=== PATIENT | male | born 1955 | race African-American/Black ===

== ENCOUNTER 2018-06-05 10:21 | Inpatient (IN) | payer OTHER, BC ==
[~2018-06-05 10:21] MED LIST: GELATIN, ABSORBABLE 100 EACH SPONGE TP ONE; THROMBIN (BOVINE) 5,000 UNIT VIAL TP ONE; VANCOMYCIN 1,000 MG VIAL (RESTRICTED TO ID ONLY) IVPB ONE; ceFAZolin SODIUM 1 GM VIAL IVPB ONE
[2018-06-05] MEDS ORDERED: SODIUM CHLORIDE 0.9% P/F 10 ML VIAL IJ ONE (13:54)
[2018-06-05] MEDS ORDERED: HEPARIN NA (PORCINE) 5,000 UNITS/ML 1ML VIAL ONE (14:07)
[2018-06-05] MEDS ORDERED: THROMBIN (BOVINE) 5,000 UNIT VIAL TP ONE ×2 (14:07→17:52)
[2018-06-05] MEDS ORDERED: MIDAZOLAM HCL 2 MG/2 ML SINGLE DOSE VIAL ONE (14:43)
[2018-06-05] MEDS ORDERED: SUCCINYLCHOLINE CHLORIDE 200 MG/10 ML VIAL ONE (14:44)
[2018-06-05] MEDS ORDERED: PROPOFOL 20 ML ONE ×17 (14:44→20:22)
[2018-06-05] MEDS ORDERED: ROCURONIUM BROMIDE 50 MG/5 ML VIAL ONE ×2 (14:44→16:34)
[2018-06-05] MEDS ORDERED: VANCOMYCIN 1,000 MG VIAL (RESTRICTED TO ID ONLY) IVPB ONE (15:45)
[2018-06-05] MEDS ORDERED: VANCOMYCIN 1,000 MG VIAL (RESTRICTED TO ID ONLY) ONE (15:45)
[2018-06-05] MEDS ORDERED: LIDOCAINE HCL/PF 2% SDV 5ML VIAL ONE (15:45)
[2018-06-05] MEDS ORDERED: ceFAZolin SODIUM 1 GM VIAL IVPB ONE ×2 (15:45→19:45)
[2018-06-05] MEDS ORDERED: ceFAZolin SODIUM 1 GM VIAL ONE ×2 (15:45→19:49)
[2018-06-05] MEDS ORDERED: GELATIN, ABSORBABLE 100 EACH SPONGE TP ONE (17:53)
[2018-06-05] MEDS ORDERED: PHENYLEPHRINE HCL 10 MG/1 ML SINGLE DOSE VIAL ONE (18:44)
[2018-06-05] MEDS ORDERED: TRANEXAMIC ACID 1000 MG/10 ML VIAL ONE (20:36)
[2018-06-05] MEDS ORDERED: DEXAMETHASONE SOD PHOSPHATE 4 MG/1 ML VIAL ONE (20:39)
[2018-06-05] MEDS ORDERED: ONDANSETRON 4 MG/2 ML VIAL IVPUSH PRN (21:12)
[2018-06-05] MEDS ORDERED: LORazepam 2 MG/ML SDV VIAL IVPUSH PRN (21:15)
--- NOTE | 2018-06-05 21:18 | PN ---
Progress Note (short form) - Note Progress Note: 63M s/p L3-S1 laminectomies; L3-4, L4-5 SPO's; L3-4, L4-5, L5-S1 PLIF; L2-S1 PISF POD #0. -Pain control: per anaesthesia team; recommend CEILING INSULATION BLOWER. -DVT PPx: - Mechanical only: TALHA's, SCD's. -Incentive spirometry. -PT/OT/Rehab, OOB. -WBAT B/L LE. -q4h B/L LE NV checks. -Post-op antibiotics x 2 doses. -NPO until flatus. -f/u AM labs. -f/u drain output. -d/c Mckeon catheter when ambulating. -Care per medical hospitalist team. -Discharge planning: f/u 7-10 days after discharge [facility]; call for appointment; . -Will follow. Zachary Willams MD (Orthopaedic Surgery).
--- NOTE | 2018-06-05 21:19 | OP ---
Operative Note - Note: Operative Date: 06/05/18 Pre-Operative Diagnosis: Lumbar spinal stenosis Operation: 1. L3-S1 laminectomies. 2. L3-4, L4-5 SPO's. 3. L3-4, L4-5, L5-S1 PLIF. 4. L2-S1 PISF. 5. Autograft. 6. Allograft Post-Operative Diagnosis: Same as Pre-op Surgeon: Zachary Willams Web Design Intern: Tin Willams Anesthesiologist/HAND CARVER: Venkata Wilson Anesthesia: General Specimens Removed: L3-S1 discs Estimated Blood Loss (mls): 600 Blood Volume Replaced (mls): 250 (Cell Saver) Fluid Volume Replaced (mls): 2,000 (Crystalloid)
[2018-06-05] MEDS ORDERED: ACETAMINOPHEN INJECTION 100 ML IVPB ONE (21:43)
[2018-06-05] MEDS ORDERED: HYDROmorphone *PCA* 10MG/50ML DISP.SYRIN PCA ONE ×2 (21:43→21:59)
[2018-06-05] MEDS: ACETAMINOPHEN 1000 MG/100 ML VIAL (NON FORMULARY) IVPB SCH (21:55)
[2018-06-05] MEDS: LACTATED RINGERS SOLUTION 1,000 ML IV SCH (22:10)
[2018-06-05] MEDS: HYDROmorphone *PCA* 10MG/50ML DISP.SYRIN PCA SCH ×2 (22:10→22:45)
[2018-06-05] MEDS: LABETALOL HCL 5 MG/1 ML (100MG/20 ML VIAL) IVPUSH PRN (22:35)
--- NOTE | 2018-06-05 23:28 | CONSULT ---
Consultation: REQUESTING PROVIDER: CONSULT REQUEST: We have been asked to medically evaluate this patient for ( intensive care ). HISTORY OF PRESENT ILLNESS: 63 y/o m with PMH of HTN, DM was admitted by spine surgeon for lumbar spine stenosis and . L3-S1 laminectomies. 2. L3-4, L4-5 SPO' s. 3. L3-4, L4-5, L5-S1 PLIF. 4. L2-S1 PISF. 5. Autograft. 6. Allograft was done on 06/05/18. patient recieved from PACU, sleeping as per pacu nurse patient recently got ativan because he was restless. patient also got labetalol push 10mg x2 BP 181/87, pr 98, spo2 96 on 3 L nc with nasal trumpet PHYSICAL EXAMINATION Vital Signs - 24 hr 06/05/18 06/05/18 06/05/18 11:08 11:13 21:30 Temperature 98.1 F 97.8 F Pulse Rate 81 90 Respiratory 18 18 Rate Blood Pressure 156/78 136/64 O2 Sat by Pulse 98 93 L Oximetry (%) 06/05/18 06/05/18 06/05/18 21:45 22:00 22:10 Temperature Pulse Rate 91 H 91 H 92 H Respiratory 17 18 17 Rate Blood Pressure 162/74 186/75 180/74 O2 Sat by Pulse 95 97 Oximetry (%) 06/05/18 06/05/18 06/05/18 22:15 22:30 22:45 Temperature Pulse Rate 92 H 90 91 H Respiratory 17 17 14 Rate Blood Pressure 180/74 202/95 169/69 O2 Sat by Pulse 93 L 94 L 94 L Oximetry (%) GENERAL: sleeping EYES: Pupils equal reactive to light b/l EARS, NOSE, THROAT: nasal trumpet with nasal canula present LUNGS: Breath sounds equal, clear to auscultation bilaterally. No wheezes, and no crackles. No accessory muscle use. HEART: s1s2 normal ABDOMEN: Soft, nontender, not distended, normoactive bowel sounds, no guarding, no rebound, no masses. UPPER EXTREMITIES: 2+ pulses, warm, well-perfused. No cyanosis. LOWER EXTREMITIES: well-perfused. No peripheral edema. NEUROLOGICAL: unobtainable SKIN: Warm, Laboratory Results - last 24 hr 06/05/18 06/05/18 06/05/18 10:34 11:00 11:00 POC Glucometer 117 Blood Type O POSITIVE O POSITIVE Antibody Screen Negative Active Medications Generic Name Dose Route Start Last Admin Trade Name Mitch PRN Reason Stop Dose Admin Acetaminophen 1,000 mg 06/05/18 21:15 06/05/18 21:55 Ofirmev Injection - IVPB 06/07/18 13:16 1,000 mg Q8H BAUTISTA Administration Cefazolin Sodium/Dextrose 2 gm 06/06/18 04:00 Ancef 2 Gm Premixed Ivpb - IVPB 06/06/18 12:01 Q8H BAUTISTA Fentanyl 50 mcg 06/05/18 21:44 Sublimaze Injection - IVPUSH [id number] PRN PAIN-PACU ORDER X 4 DOSES ONLY Hydromorphone HCl 0 mg 06/05/18 21:45 06/05/18 22:10 Dilaudid Dermatopathologist - DECKER OPERATOR 06/12/18 21:45 10 mg DECKER OPERATOR BAUTISTA Administration Protocol Lactated Ringer's 1,000 mls @ 125 mls/hr 06/05/18 21:15 Lactated Ringers Solution IV ASDIR [facility] Insulin Aspart 1 vial 06/06/18 07:00 Novolog Vial Sliding Scale - SQ BIDAC [facility] Protocol Labetalol HCl 10 mg 06/05/18 22:33 06/05/18 22:35 Normodyne Injection - IVPUSH 10 mg ONCE PRN Administration HYPERTENSION Lorazepam 1 mg 06/05/18 21:15 Ativan Injection - IVPUSH Q6H PRN MUSCLE SPASMS Losartan Potassium 25 mg 06/06/18 10:00 Cozaar - PO DAILY [facility] Ondansetron HCl 4 mg 06/05/18 21:12 Zofran Injection IVPUSH Q6H PRN NAUSEA AND/OR VOMITING ASSESSMENT/PLAN: Problem Lumbar spine stenosis. S/P . L3-S1 laminectomies. 2. L3-4, L4-5 SPO's. 3. L3-4, L4-5, L5-S1 PLIF. 4. L2-S1 PISF. 5. Autograft. 6. Allograft HTN DM Plan -Incentive spirometry. -PT/OT/Rehab, OOB. -q4h B/L LE NV checks. -Post-op antibiotics as per surgeon -NPO until flatus. -f/u AM labs. - d/c dennis catheter when ambulating. - got labetalol in pacu - on losartan 25mg daily. - monitor vitals - Novolog sliding scale - blood glucose monitoring. - IV fluid LR Dispo: We will continue to follow the patient. Thank you for this consultative opportunity. Visit type - Emergency Visit Emergency Visit: Yes ED Registration Date: 06/05/18 Care time: The patient presented to the Emergency Department on the above date and was hospitalized for further evaluation of their emergent condition. - New Patient This patient is new to me today: Yes Date on this admission: 06/13/18 - Critical Care Critical Care patient: Yes Total Critical Care Time (in minutes): 45 Critical Care Statement: The care of this patient involved high complexity decision making to prevent further life threatening deterioration of the patient 's condition and/or to evaluate & treat vital organ system(s) failure or risk of failure.
[2018-06-06] MEDS: ACETAMINOPHEN 1000 MG/100 ML VIAL (NON FORMULARY) IVPB SCH ×4 (04:45→22:56)
[2018-06-06] MEDS: ceFAZolin 2 GRAM PREMIX BAG IVPB SCH ×2 (04:58→12:37)
[2018-06-06] MEDS ORDERED: HEMOQUE TEST 1 EACH EACH ONE (06:09)
[2018-06-06 06:28] LABS: HEMATOCRIT 36.6 % (35.4-49); HEMOGLOBIN 12.5 GM/dL (11.7-16.9); MCH 30.6 pg (25.7-33.7); MCHC 34.1 g/dl (32.0-35.9); MEAN CELL VOLUME 89.7 fl (80-96); MEAN PLT VOLUME 9.9 fl (7.5-11.1); PLATELET COUNT 196 K/MM3 (134-434); RBC 4.09 M/mm3 (4.00-5.60); RDW 13.3 % (11.9-15.9); WHITE BLOOD COUNT 13.3 K/mm3 (4.0-10.0)
[2018-06-06 06:52] LABS: CHLORIDE 102 mmol/L (98-107); POTASSIUM 4.5 mmol/L (3.5-5.1); SODIUM 139 mmol/L (136-145)
[2018-06-06 06:59] LABS: ANION GAP 11 (8-16); BLOOD UREA NITROGEN 15 mg/dL (7-18); CALCIUM 8.4 mg/dL (8.5-10.1); CO2 26 mmol/L (21-32); CREATININE 1.3 mg/dL (0.7-1.3); GLUCOSE,RANDOM 293 mg/dL (74-106)
[2018-06-06] MEDS ORDERED: INSULIN SLIDING SCALE (NOVOLOG) 1 VIAL SQ SCH (07:00)
[2018-06-06] MEDS ORDERED: HYDROmorphone *PCA* 10MG/50ML DISP.SYRIN PCA SCH ×2 (08:18→11:20)
--- NOTE | 2018-06-06 08:24 | PN ---
Physical Exam: SUBJECTIVE: Patient seen and examined in the ICU. Pt appears to be resting comfortably. Upon awakening, pt seems confused and is not responding to questioning. OBJECTIVE: Vital Signs Period Temp Pulse Resp BP Sys/Cotto Pulse Ox Last 24 Hr 96 F-99.6 F 55-108 11-24 101-202/55-95 93-98 GENERAL: The patient is awake, in no acute distress. HEAD: Normal with no signs of trauma. EYES: sclera anicteric, conjunctiva clear. No ptosis. ENT: Ears normal, nares patent, oropharynx clear without exudates, moist mucous membranes. NECK: Trachea midline, full range of motion, supple. LUNGS: Breath sounds equal, clear to auscultation bilaterally, no wheezes, no crackles, no accessory muscle use. HEART: Tachycardic, regular rhythm, S1, S2 without murmur, rub or gallop. ABDOMEN: Soft, nontender, nondistended, hypoactive bowel sounds, no guarding, no rebound, no hepatosplenomegaly, no masses. EXTREMITIES: warm, well-perfused, no edema. NEUROLOGICAL: Cranial nerves II through XII grossly intact. gait not observed. Follows some commands but not others, full neuro exam unable to be obtained, gross motor strength of LE b/l in tact. SKIN: Warm, dry, normal turgor, no rashes or lesions noted Laboratory Results - last 24 hr 06/05/18 06/05/18 06/05/18 10:34 11:00 11:00 WBC RBC Hgb Hct MCV MCH MCHC RDW Plt Count MPV Sodium Potassium Chloride Carbon Dioxide Anion Gap BUN Creatinine Creat Clearance w eGFR POC Glucometer 117 Random Glucose Calcium Blood Type O POSITIVE O POSITIVE Antibody Screen Negative 06/06/18 06/06/18 05:30 05:30 WBC 13.3 H RBC 4.09 Hgb 12.5 Hct 36.6 MCV 89.7 MCH 30.6 MCHC 34.1 RDW 13.3 Plt Count 196 MPV 9.9 Sodium 139 Potassium 4.5 Chloride 102 Carbon Dioxide 26 Anion Gap 11 BUN 15 Creatinine 1.3 Creat Clearance w eGFR 55.40 POC Glucometer Random Glucose 293 H Calcium 8.4 L Blood Type Antibody Screen Active Medications Generic Name Dose Route Start Last Admin Trade Name Freq PRN Reason Stop Dose Admin Acetaminophen 1,000 mg 06/05/18 21:15 06/06/18 04:45 Ofirmev Injection - IVPB 06/07/18 13:16 1,000 mg Q8H BAUTISTA Administration Cefazolin Sodium/Dextrose 2 gm 06/06/18 04:00 06/06/18 04:58 Ancef 2 Gm Premixed Ivpb - IVPB 06/06/18 12:01 2 gm Q8H BAUTISTA Administration Fentanyl 50 mcg 06/05/18 21:44 Sublimaze Injection - IVPUSH [id number] PRN PAIN-PACU ORDER X 4 DOSES ONLY Hydromorphone HCl 0 mg 06/05/18 21:45 06/05/18 22:45 Dilaudid Plater Apprentice - PC MAINTENANCE TECHNICIAN 06/12/18 21:45 0.5 mg PC MAINTENANCE TECHNICIAN BAUTISTA Administration Protocol Lactated Ringer's 1,000 mls @ 125 mls/hr 06/05/18 21:15 06/05/18 22:10 Lactated Ringers Solution IV 125 mls/hr ASDIR BAUTISTA Administration Insulin Aspart 1 vial 06/06/18 07:00 Novolog Vial Sliding Scale - SQ BIDAC BAUTISTA Protocol Labetalol HCl 10 mg 06/05/18 22:33 06/05/18 22:35 Normodyne Injection - IVPUSH 10 mg ONCE PRN Administration HYPERTENSION Lorazepam 1 mg 06/05/18 21:15 06/05/18 23:15 Ativan Injection - IVPUSH 1 mg Q6H PRN Administration MUSCLE SPASMS Losartan Potassium 25 mg 06/06/18 10:00 Cozaar - PO DAILY BAUTISTA Ondansetron HCl 4 mg 06/05/18 21:12 Zofran Injection IVPUSH Q6H PRN NAUSEA AND/OR VOMITING ASSESSMENT/PLAN: 63 yo male admitted to the ICU s/p L3-S1 laminectomy, L3-L4/L4-L5 SPO, L3-S1 PLIF, L2-S1 PISF. Post-op day 1 Neuro -post-op day 1 -Neuro checks Q4 as per surgery recommendation Cardio -No known cardiac issues at this time Respiratory -No known respiratory problems -Incentive spirometry to decrease risk of post-op atelectasis/pneumonia GI -NPO until flatus -Will add bowel regimen as necessary -Zofran PRN for nausea/vomiting Post-op Management -Pain control: PC MAINTENANCE TECHNICIAN as per anesthesia Will monitor pain and switch to PO pain medication when able -OOB as tolerated -d/c dennis when Ambulating DVT Prophylaxis -TEDs/SCDs only as per surgery FEN -Fluids: LR @ 125 cc/hr -Electrolytes: No electrolyte abnormalities, will follow BMP -Nutrition: NPO until Flatus Disposition Monitor in the ICU for now Visit type - Emergency Visit Emergency Visit: No - New Patient This patient is new to me today: Yes Date on this admission: 06/06/18 - Critical Care Critical Care patient: Yes Total Critical Care Time (in minutes): 35 Critical Care Statement: The care of this patient involved high complexity decision making to prevent further life threatening deterioration of the patient 's condition and/or to evaluate & treat vital organ system(s) failure or risk of failure.
[2018-06-06] MEDS: LOSARTAN POTASSIUM 25 MG TABLET PO SCH (09:27)
--- NOTE | 2018-06-06 09:47 | OP ---
DATE OF OPERATION: 06/05/2018 SURGEON: Zachary Willams MD CLAY PRESS OPERATOR: Tin Willams MD PREOPERATIVE DIAGNOSIS: L2 to S1 spinal stenosis with associated segmental instability kyphosis and flat back syndrome. POSTOPERATIVE DIAGNOSIS: L2 to S1 spinal stenosis with associated segmental instability kyphosis and flat back syndrome. OPERATION PERFORMED: 1. Laminectomy L2 to S1. 2. Davies-Fernandez osteotomy at L3-L4 and L4-L5. 3. Pedicle screw instrumentation L2 to S1. 4. Posterior arthrodesis L2 to S1. 5. Use of biplane fluoroscopy and intraoperative neuromonitoring. 6. Bone aspirate concentrate. 7. Complex wound closure, 30 cm. ANESTHESIA: General. ANTIBIOTICS GIVEN: Kefzol 2 g, vancomycin 1 g. Kefzol 1 g given intraoperatively. Thorough lavage given throughout the operation. Relaxation with retractors every 15-20 minutes. OPERATION DETAILS: Patient was correctly identified, brought into the operating room, placed prone on the operating room table with gel rolls and all appropriate bony points padded. The lumbar spine was prepped, window-draped with routine Betadine scrub solution, wiped with alcohol, applied. Time-out was called. Imaging was available. Intraoperative evaluation. A midline incision was utilized from the tip of the spinous process to S1. Subperiosteal dissection performed down the spinous process over the laminae, over the facet joints to the intertransverse plane, both left and right hand sides exposing the entire area including the ala of the sacrum, both left and right hand sides. A lateral fluoroscopic x-ray revealed the correct levels for dissection as well as appropriate anatomical guidelines. The lamina from L2 to S1 resected using the Leksell rongeurs as well as Kerrison upcuts. Once this had been performed, longitudinal incisions were made in the pars interarticularis and the inferior facets to implode the bone inwards. The Davies-Sal osteotomies were then completed by resecting the pars interarticularis at L3-L4 and L4-L5. Once this had been performed, a full undercutting facetectomy was enabled by the resection of the inferior partially inferior facets. This freed the THEKA completely including the recesses. The above nerves were followed through the neural formina and found to be completely free. Once this had been performed, the discs at L3-L4, L4-L5, L5-S1 were identically managed as follows: Each disc exposed with gentle retraction of the THEKA. This gave access to the epidural veins utilized with bipolar Bovie. Each annulus was opened with the 11 blade. Each disc shaved with the appropriate jennifer. At L3-L4 and L4-L5, we shaved up to size 10 and then sized at L5-S1 to size 9. All disc material was removed, sent to the lab for histopathology. All discs exhibited complete emptiness into the interbody disc space with healthy end-plate bleeding bone accordingly. Once this had been performed, each disc space was packed with bone. This was the bone milled, harvested from the posterior and milled in a [place] mill. This was packed into position in each disc space, and each disc was filled with an appropriate 40-link spacer. Two were at L3-L4 and L4-L5 (they measured 11 mm), and at L5-S1, this was 10 mm. Once this had been completed, the screws from L2 to S1 were seated by first drilling, using anatomic guidelines with lateral fluoroscopic x-ray. Each pedicle was entered with a 4-5 drill bit, palpated with a ball-tipped feeler. Each screw was then seated, and the screws were tested with a neuromonitoring device, all thought to be completely safe within the parameters of neuromonitoring that is well above 10 mA, in fact all above 20. Rods were contoured appropriately, the spine encouraged into more lordosis by the Davies-Sal osteotomies, and the rods were tightened onto the screw caps with the appropriate torque device giving a solid fixation and excellent realignment of the spine appropriately. It was entirely lavaged again. The intertransverse plane was opened, and a mixture of autologous allograft was inserted, and strips of allograft inserted in bone marrow aspirate concentrate was inserted. The bone marrow aspirate concentrate was harvested from the left posterior ileum from a separate thoracodorsal incision. The wounds were thoroughly lavaged. Closure, muscle 1 Vicryl, fascia 1 Vicryl, subcutaneous 1 and 2-0 Vicryl, skin jennifer. No drains inserted as the wound was completely dry. Sterile dressing applied. The operation went well. AP lateral x-rays were well seated. No complications. BLOOD LOSS: 650, 250 given back with Cell Saver. MD SAUNDRA Payne/[id number]
--- NOTE | 2018-06-06 11:39 | PN ---
Progress Note (short form) - Note Progress Note: Anesthesia Post op/Pain Pt seen and examined S:sedated on ativan O; Vital Signs Temperature 98.8 F 06/06/18 10:00 Pulse Rate 107 H 06/06/18 10:00 Respiratory Rate 14 06/06/18 10:00 Blood Pressure 127/78 06/06/18 10:00 O2 Sat by Pulse Oximetry (%) 98 06/06/18 08:00 CBC, BMP 06/06/18 05:30 06/06/18 05:30 A/P:s/p L1-S1 Laminectomy with fusion Basal rate EMISSIONS INSPECTOR ordered by ICU resident without notification to fire prevention forester anesthesiologist Pt was not using EMISSIONS INSPECTOR on his own Will stop continuous EMISSIONS INSPECTOR will put demand only Needs encouragement to use EMISSIONS INSPECTOR post op spoke to ICU staffs Continue current care Tripp Brice MD
--- NOTE | 2018-06-06 11:59 | PN ---
Teaching Attending Note Name of Resident: Reymundo Brandon ATTENDING PHYSICIAN STATEMENT I saw and evaluated the patient. I reviewed the resident's note and discussed the case with the resident. I agree with the resident's findings and plan as documented. SUBJECTIVE: Patient seen and examined in the ICU. Drowsy but arousable. Able to tell me his Birthday, where he is, and what type of surgery he underwent. Moves all extremities without deficit. Noted he received Ativan around 9PM. Reports some discomfort at the surgical site. Denies CP or SOB. Intake & Output 06/03/18 06/04/18 06/05/18 06/06/18 23:59 23:59 23:59 23:59 Intake Total 2500 Output Total 1730 Balance 770 Weight 224 lb Last Vital Signs Temp Pulse Resp BP Pulse Ox 98.8 F 107 H 14 127/78 98 06/06/18 10:00 06/06/18 10:00 06/06/18 10:00 06/06/18 10:00 06/06/18 08:00 Active Medications Acetaminophen (Ofirmev Injection -) 1,000 mg IVPB Q8H BAUTISTA Stop: 06/07/18 13:16 Last Admin: 06/06/18 04:45 Dose: 1,000 mg Cefazolin Sodium/Dextrose (Ancef 2 Gm Premixed Ivpb -) 2 gm IVPB Q8H BAUTISTA Stop: 06/06/18 12:01 Last Admin: 06/06/18 04:58 Dose: 2 gm Fentanyl (Sublimaze Injection -) 50 mcg IVPUSH [id number] PRN PRN Reason: PAIN-PACU ORDER X 4 DOSES ONLY Hydromorphone HCl (Dilaudid Loan Underwriter -) 0 mg AUDIO VIDEO REPAIRER AUDIO VIDEO REPAIRER BAUTISTA; Protocol Stop: 06/12/18 21:45 Lactated Ringer's (Lactated Ringers Solution) 1,000 mls @ 125 mls/hr IV ASDIR BAUTISTA Last Admin: 06/05/18 22:10 Dose: 125 mls/hr Insulin Aspart (Novolog Vial Sliding Scale -) 1 vial SQ BIDAC BAUTISTA; Protocol Labetalol HCl (Normodyne Injection -) 10 mg IVPUSH ONCE PRN PRN Reason: HYPERTENSION Last Admin: 06/05/18 22:35 Dose: 10 mg Lorazepam (Ativan Injection -) 1 mg IVPUSH Q6H PRN PRN Reason: MUSCLE SPASMS Last Admin: 06/05/18 23:15 Dose: 1 mg Losartan Potassium (Cozaar -) 25 mg PO DAILY BAUTISTA Last Admin: 06/06/18 09:27 Dose: Not Given Ondansetron HCl (Zofran Injection) 4 mg IVPUSH Q6H PRN PRN Reason: NAUSEA AND/OR VOMITING GENERAL: Drowsy but arousable, NAD EYES: Pupils equal reactive to light EARS, NOSE, THROAT: nasal trumpet with nasal canula present LUNGS: Clear to auscultation bilaterally. No wheezes, and no crackles. No accessory muscle use. HEART: S1S2 normal ABDOMEN: Soft, nontender, not distended, normoactive bowel sounds, no guarding, no rebound, no masses. UPPER EXTREMITIES: 2+ pulses, warm, well-perfused. No cyanosis. LOWER EXTREMITIES: well-perfused. No peripheral edema. NEUROLOGICAL: Non-focal exam SKIN: Warm Laboratory Results - last 24 hr 06/05/18 06/05/18 06/05/18 10:34 11:00 22:10 WBC RBC Hgb Hct MCV MCH MCHC RDW Plt Count MPV Sodium Potassium Chloride Carbon Dioxide Anion Gap BUN Creatinine Creat Clearance w eGFR POC Glucometer 169 Random Glucose Calcium Blood Type O POSITIVE O POSITIVE Antibody Screen Negative 06/06/18 06/06/18 06/06/18 05:30 05:30 06:11 WBC 13.3 H RBC 4.09 Hgb 12.5 Hct 36.6 MCV 89.7 MCH 30.6 MCHC 34.1 RDW 13.3 Plt Count 196 MPV 9.9 Sodium 139 Potassium 4.5 Chloride 102 Carbon Dioxide 26 Anion Gap 11 BUN 15 Creatinine 1.3 Creat Clearance w eGFR 55.40 POC Glucometer [phone] Random Glucose 293 H Calcium 8.4 L Blood Type Antibody Screen ASSESSMENT/PLAN: POD #1: L3-S1 laminectomies; L3-4, L4-5 SPO's; L3-4, L4-5, L5-S1 PLIF; L2-S1 PISF; Autograft; Allograft. Spinal Stenosis HTN DM Plan Incentive spirometry Pain control PT/OT/Rehab Follow Neuro exam Post-op ABX per surgery NPO until flatus D/C dennis catheter when ambulating BP control Glycemic control with a sliding scale Dr Lee Critical care time spent in reviewing chart, evaluating patient and formulating plan - 36 minutes.
[2018-06-06] MEDS: HYDROmorphone *PCA* 10MG/50ML DISP.SYRIN PCA SCH ×2 (13:42→21:12)
[2018-06-06] MEDS: LACTATED RINGERS SOLUTION 1,000 ML IV SCH ×2 (17:00→22:48)
[2018-06-06] MEDS ORDERED: INSULIN (NOVOLOG) ASPART 100 UNITS/ML 10ML VIAL ONE (17:31)
[2018-06-06] MEDS: INSULIN SLIDING SCALE (NOVOLOG) 1 VIAL SQ SCH (17:40)
[2018-06-06] MEDS ORDERED: HYDROmorphone *PCA* 10MG/50ML DISP.SYRIN PCA ONE (21:02)
[2018-06-07] MEDS: LABETALOL HCL 5 MG/1 ML (100MG/20 ML VIAL) IVPUSH PRN (00:24)
[2018-06-07] MEDS: LACTATED RINGERS SOLUTION 1,000 ML IV SCH ×2 (00:29→08:27)
[2018-06-07] MEDS: ACETAMINOPHEN 1000 MG/100 ML VIAL (NON FORMULARY) IVPB SCH (05:50)
[2018-06-07 05:57] LABS: BASO % 0.1 % (0-2.0); EOS % 0.1 % (0-4.5); HEMATOCRIT 30.8 % (35.4-49); HEMOGLOBIN 10.7 GM/dL (11.7-16.9); LYMPH % 7.8 % (8-40); MCH 31.4 pg (25.7-33.7); MCHC 34.8 g/dl (32.0-35.9); MEAN CELL VOLUME 90.3 fl (80-96); MEAN PLT VOLUME 9.9 fl (7.5-11.1); PLATELET COUNT 155 K/MM3 (134-434); RBC 3.41 M/mm3 (4.00-5.60); RDW 13.6 % (11.9-15.9); WHITE BLOOD COUNT 11.8 K/mm3 (4.0-10.0)
[2018-06-07] MEDS: INSULIN SLIDING SCALE (NOVOLOG) 1 VIAL SQ SCH ×2 (06:07→17:43)
[2018-06-07 06:42] LABS: ALBUMIN 3.3 g/dl (3.4-5.0); ANION GAP 6 (8-16); BILIRUBIN,TOTAL 1.1 mg/dL (0.2-1.0); BLOOD UREA NITROGEN 18 mg/dL (7-18); CALCIUM 8.3 mg/dL (8.5-10.1); CHLORIDE 103 mmol/L (98-107); CO2 31 mmol/L (21-32); CREATININE 1.1 mg/dL (0.7-1.3); GLUCOSE,RANDOM 252 mg/dL (74-106); MAGNESIUM 2.1 mg/dL (1.8-2.4); PHOSPHOROUS 2.4 mg/dL (2.5-4.9); POTASSIUM 4.3 mmol/L (3.5-5.1); SGOT/AST 36 U/L (15-37); SGPT/ALT 26 U/L (12-78); SODIUM 140 mmol/L (136-145); TOT PROT 6.4 g/dl (6.4-8.2)
[2018-06-07 06:43] LABS: ALK PHOS 72 U/L (45-117)
[2018-06-07] MEDS: LOSARTAN POTASSIUM 25 MG TABLET PO SCH (09:01)
[2018-06-07] MEDS ORDERED: DOCUSATE SODIUM 100 MG CAPSULE (FP) PO PRN ×2 (09:02→16:41)
[2018-06-07] MEDS ORDERED: ACETAMINOPHEN 325 MG TABLET (FP) PO PRN (09:02)
--- NOTE | 2018-06-07 11:07 | PN ---
Progress Note, Physician Chief Complaint: day #2 s/p PLIF - Current Medication List Current Medications: Active Medications Acetaminophen (Tylenol -) 650 mg PO Q4H PRN PRN Reason: PAIN LEVEL 1-5 Docusate Sodium (Colace -) 100 mg PO BID PRN PRN Reason: CONSTIPATION Last Admin: 06/07/18 10:37 Dose: 100 mg Fentanyl (Sublimaze Injection -) 50 mcg IVPUSH [id number] PRN PRN Reason: PAIN-PACU ORDER X 4 DOSES ONLY Hydromorphone HCl (Dilaudid Tungsten Refiner -) 0 mg CREATIVE COORDINATOR CREATIVE COORDINATOR [facility]; Protocol Stop: 06/12/18 21:45 Last Admin: 06/06/18 21:12 Dose: 10 mg Lactated Ringer's (Lactated Ringers Solution) 1,000 mls @ 125 mls/hr IV ASDIR BAUTISTA Last Admin: 06/07/18 08:27 Dose: 125 mls/hr Insulin Aspart (Novolog Vial Sliding Scale -) 1 vial SQ BIDAC [facility]; Protocol Last Admin: 06/07/18 06:07 Dose: 6 units Lorazepam (Ativan Injection -) 1 mg IVPUSH Q6H PRN PRN Reason: MUSCLE SPASMS Last Admin: 06/05/18 23:15 Dose: 1 mg Losartan Potassium (Cozaar -) 25 mg PO DAILY [facility] Last Admin: 06/07/18 09:01 Dose: 25 mg Ondansetron HCl (Zofran Injection) 4 mg IVPUSH Q6H PRN PRN Reason: NAUSEA AND/OR VOMITING - Objective Vital Signs: Vital Signs Temperature 97.6 F 06/07/18 06:00 Pulse Rate 100 H 06/07/18 08:00 Respiratory Rate 18 06/07/18 08:00 Blood Pressure 175/77 06/07/18 08:00 O2 Sat by Pulse Oximetry (%) 98 06/06/18 22:00 Labs: CBC, BMP 06/07/18 05:30 06/07/18 05:30 Assessment/Plan Pain well controlled on CREATIVE COORDINATOR; will continue CREATIVE COORDINATOR for now
--- NOTE | 2018-06-07 11:10 | PN ---
Physical Exam: SUBJECTIVE: Patient seen and examined in the ICU. He is much more awake and responsive today than yesterday. He states that his pain is improved and that he is able to move and get out of bed. He states that he is hungry and thinks he could tolerate food. OBJECTIVE: Vital Signs Period Temp Pulse Resp BP Sys/Cotto Pulse Ox Last 24 Hr 97.6 F-98.2 F 92-111 12-18 136-179/70-96 98 GENERAL: The patient is awake, in no acute distress. HEAD: Normal with no signs of trauma. EYES: sclera anicteric, conjunctiva clear. No ptosis. ENT: Ears normal, nares patent, oropharynx clear without exudates, moist mucous membranes. NECK: Trachea midline, full range of motion, supple. LUNGS: Breath sounds equal, clear to auscultation bilaterally, no wheezes, no crackles, no accessory muscle use. HEART: Tachycardic, regular rhythm, S1, S2 without murmur, rub or gallop. ABDOMEN: Soft, nontender, nondistended, normoactive bowel sounds, no guarding, no rebound, no hepatosplenomegaly, no masses. EXTREMITIES: warm, well-perfused, no edema. NEUROLOGICAL: Cranial nerves II through XII grossly intact. gait not observed. 5/5 Strength of LE, sensation in tact SKIN: Warm, dry, normal turgor, no rashes or lesions noted Laboratory Results - last 24 hr 06/06/18 06/07/18 06/07/18 06:11 05:30 05:30 WBC 11.8 H RBC 3.41 L Hgb 10.7 L Hct 30.8 L D MCV 90.3 MCH 31.4 MCHC 34.8 RDW 13.6 Plt Count 155 D MPV 9.9 Absolute Neuts (auto) 9.9 Neutrophils % 84.0 H Lymphocytes % 7.8 L Monocytes % 8.0 Eosinophils % 0.1 Basophils % 0.1 Nucleated RBC % 0 Sodium 140 Potassium 4.3 Chloride 103 Carbon Dioxide 31 Anion Gap 6 L BUN 18 Creatinine 1.1 Creat Clearance w eGFR > 60 POC Glucometer [phone] Random Glucose 252 H Calcium 8.3 L Phosphorus 2.4 L Magnesium 2.1 Total Bilirubin 1.1 H AST 36 ALT 26 Alkaline Phosphatase 72 Total Protein 6.4 Albumin 3.3 L Active Medications Generic Name Dose Route Start Last Admin Trade Name Freq PRN Reason Stop Dose Admin Acetaminophen 650 mg 06/07/18 09:02 Tylenol - PO Q4H PRN PAIN LEVEL 1-5 Docusate Sodium 100 mg 06/07/18 09:02 06/07/18 10:37 Colace - PO 100 mg BID PRN Administration CONSTIPATION Fentanyl 50 mcg 06/05/18 21:44 Sublimaze Injection - IVPUSH [id number] PRN PAIN-PACU ORDER X 4 DOSES ONLY Hydromorphone HCl 0 mg 06/06/18 11:42 06/06/18 21:12 Dilaudid Staff Radiologist - STEM SETTER 06/12/18 21:45 10 mg STEM SETTER BAUTISTA Administration Protocol Lactated Ringer's 1,000 mls @ 125 mls/hr 06/05/18 21:15 06/07/18 08:27 Lactated Ringers Solution IV 125 mls/hr ASDIR BAUTISTA Administration Insulin Aspart 1 vial 06/06/18 11:16 06/07/18 06:07 Novolog Vial Sliding Scale - SQ 6 units BIDAC BAUTISTA Administration Protocol Lorazepam 1 mg 06/05/18 21:15 06/05/18 23:15 Ativan Injection - IVPUSH 1 mg Q6H PRN Administration MUSCLE SPASMS Losartan Potassium 25 mg 06/06/18 10:00 06/07/18 09:01 Cozaar - PO 25 mg DAILY BAUTISTA Administration Ondansetron HCl 4 mg 06/05/18 21:12 Zofran Injection IVPUSH Q6H PRN NAUSEA AND/OR VOMITING ASSESSMENT/PLAN: 63 yo male admitted to the ICU s/p L3-S1 laminectomy, L3-L4/L4-L5 SPO, L3-S1 PLIF, L2-S1 PISF. Post-op day 2 Neuro -post-op day 2 -Neuro checks Q4 as per surgery recommendation Cardio -HTN Cozar 25 mg PO Daily Respiratory -No known respiratory problems -Incentive spirometry to decrease risk of post-op atelectasis/pneumonia GI -Clear liquids, can advance as tolerated -Colace 100 mg PO BID PRN constipation -Zofran PRN for nausea/vomiting Endocrine -DM Insulin Sliding scale, will adjust as necessary for glycemic control 140-180 Post-op Management -Pain control: STEM SETTER as per anesthesia Will monitor pain and switch to PO pain medication when able -OOB as tolerated -d/c dennis DVT Prophylaxis -TEDs/SCDs only as per surgery FEN -Fluids: LR @ 125 cc/hr, can d/c if tolerating diet -Electrolytes: No electrolyte abnormalities, will follow BMP -Nutrition: Clear liquid diet, will advance as tolerated, bowel regimen Disposition Transfer to Med/Surg Problem List - Problems (1) HTN (hypertension) Code(s): I10 - ESSENTIAL (PRIMARY) HYPERTENSION (2) Diabetes mellitus Code(s): E11.9 - TYPE 2 DIABETES MELLITUS WITHOUT COMPLICATIONS (3) Chronic low back pain Code(s): M54.5 - LOW BACK PAIN; G89.29 - OTHER CHRONIC PAIN Visit type - Emergency Visit Emergency Visit: No - New Patient This patient is new to me today: No - Critical Care Critical Care patient: Yes Total Critical Care Time (in minutes): 35 Critical Care Statement: The care of this patient involved high complexity decision making to prevent further life threatening deterioration of the patient 's condition and/or to evaluate & treat vital organ system(s) failure or risk of failure.
--- NOTE | 2018-06-07 11:45 | PN ---
Teaching Attending Note Name of Resident: Reymundo Brandon ATTENDING PHYSICIAN STATEMENT I saw and evaluated the patient. I reviewed the resident's note and discussed the case with the resident. I agree with the resident's findings and plan as documented. SUBJECTIVE: Pt seen and examined in the ICU. Pain relatively controlled. No nausea or vomiting. No fevers or chills. OBJECTIVE: Vital Signs Period Temp Pulse Resp BP Sys/Cotto Pulse Ox Last 24 Hr 97.6 F-98.2 F 92-111 12-18 136-179/70-96 98 Intake & Output 06/04/18 06/05/18 06/06/18 06/07/18 23:59 23:59 23:59 23:59 Intake Total 2500 1500 1880 Output Total 1730 1050 800 Balance 566 871 2115 Weight 101.605 kg 101.605 kg 101.208 kg Gen: NAD at rest Heart: RRR Lung: decreased breath sounds at the bases Abd: soft, nontender Ext: no edema CBC, BMP 06/07/18 05:30 06/07/18 05:30 Active Medications Acetaminophen (Tylenol -) 650 mg PO Q4H PRN PRN Reason: PAIN LEVEL 1-5 Docusate Sodium (Colace -) 100 mg PO BID PRN PRN Reason: CONSTIPATION Last Admin: 06/07/18 10:37 Dose: 100 mg Fentanyl (Sublimaze Injection -) 50 mcg IVPUSH [id number] PRN PRN Reason: PAIN-PACU ORDER X 4 DOSES ONLY Hydromorphone HCl (Dilaudid Investigation Division Captain -) 0 mg OIL PIPELINE DISPATCHER OIL PIPELINE DISPATCHER [facility]; Protocol Stop: 06/12/18 21:45 Last Admin: 06/06/18 21:12 Dose: 10 mg Lactated Ringer's (Lactated Ringers Solution) 1,000 mls @ 125 mls/hr IV ASDIR BAUTISTA Last Admin: 06/07/18 08:27 Dose: 125 mls/hr Insulin Aspart (Novolog Vial Sliding Scale -) 1 vial SQ BIDAC [facility]; Protocol Last Admin: 06/07/18 06:07 Dose: 6 units Lorazepam (Ativan Injection -) 1 mg IVPUSH Q6H PRN PRN Reason: MUSCLE SPASMS Last Admin: 06/05/18 23:15 Dose: 1 mg Losartan Potassium (Cozaar -) 25 mg PO DAILY BAUTISTA Last Admin: 06/07/18 09:01 Dose: 25 mg Ondansetron HCl (Zofran Injection) 4 mg IVPUSH Q6H PRN PRN Reason: NAUSEA AND/OR VOMITING ASSESSMENT AND PLAN: Lumbar Spinal Stenosis s/p L3-S1 Laminectomies/L3-L4, L4-5, L5-S1 PLIF/L2-S1 PISF DM - pain control - incentive spirometry - d/c dennis - bowel regimen - rehab/PT - DVT prophylaxis - can monitor on floor
[2018-06-07] MEDS ORDERED: PNEUMOC 13-VAL CONJ-DIP CRM/PF 0.5 ML DISP.SYRIN IM ONE (16:30)
[2018-06-07] MEDS ORDERED: LACTATED RINGERS SOLUTION 1,000 ML IV SCH ×2 (16:41→16:53)
[2018-06-07] MEDS ORDERED: HYDROmorphone *PCA* 10MG/50ML DISP.SYRIN PCA SCH (16:41)
[2018-06-07] MEDS ORDERED: ONDANSETRON 4 MG/2 ML VIAL IVPUSH PRN (16:41)
[2018-06-07] MEDS ORDERED: KETOROLAC TROMETHAMINE 30 MG/1 ML VIAL IVPUSH PRN (23:02)
[2018-06-07] MEDS: LORazepam 2 MG/ML SDV VIAL IVPUSH PRN (23:47)
[2018-06-08] MEDS: INSULIN SLIDING SCALE (NOVOLOG) 1 VIAL SQ SCH ×4 (06:18→21:43)
[2018-06-08 06:34] LABS: BASO % 0.3 % (0-2.0); EOS % 0.6 % (0-4.5); HEMATOCRIT 29.2 % (35.4-49); HEMOGLOBIN 10.5 GM/dL (11.7-16.9); LYMPH % 12.5 % (8-40); MCH 31.8 pg (25.7-33.7); MCHC 35.7 g/dl (32.0-35.9); MEAN CELL VOLUME 89.1 fl (80-96); MEAN PLT VOLUME 9.7 fl (7.5-11.1); MONO % 7.3 % (3.8-10.2); NEUT % 79.3 % (42.8-82.8); PLATELET COUNT 135 K/MM3 (134-434); RBC 3.28 M/mm3 (4.00-5.60); RDW 12.9 % (11.9-15.9); WHITE BLOOD COUNT 7.9 K/mm3 (4.0-10.0)
[2018-06-08 06:54] LABS: ALK PHOS 72 U/L (45-117); ANION GAP 7 (8-16); BILIRUBIN,TOTAL 1.3 mg/dL (0.2-1.0); BLOOD UREA NITROGEN 11 mg/dL (7-18); CALCIUM 8.5 mg/dL (8.5-10.1); CHLORIDE 100 mmol/L (98-107); CO2 32 mmol/L (21-32); CREATININE 1.1 mg/dL (0.7-1.3); GLUCOSE,RANDOM 256 mg/dL (74-106); POTASSIUM 3.7 mmol/L (3.5-5.1); SGOT/AST 39 U/L (15-37); SGPT/ALT 25 U/L (12-78); SODIUM 139 mmol/L (136-145); TOT PROT 6.1 g/dl (6.4-8.2)
[2018-06-08] MEDS ORDERED: NAPH,MB-DB/K PH,MBDB POWDER PACKET PO ONE (08:45)
[2018-06-08] MEDS: LOSARTAN POTASSIUM 25 MG TABLET PO SCH (09:09)
[2018-06-08] MEDS ORDERED: NAPH,MB-DB/K PH,MBDB POWDER PACKET PO SCH (10:00)
--- NOTE | 2018-06-08 12:59 | PN ---
Teaching Attending Note Name of Resident: Reymundo Brandon ATTENDING PHYSICIAN STATEMENT I saw and evaluated the patient. I reviewed the resident's note and discussed the case with the resident. I agree with the resident's findings and plan as documented. SUBJECTIVE: Patient seen and examined in the ICU. Awake and alert. Pain mostly on movement. No CP or SOB. No BM for several days. Intake & Output 06/05/18 06/06/18 06/07/18 06/08/18 23:59 23:59 23:59 23:59 Intake Total 2500 1500 2860 Output Total 1730 1050 2100 300 Balance 770 450 760 -300 Weight 224 lb 224 lb 223 lb 2 oz 226 lb 6 oz Last Vital Signs Temp Pulse Resp BP Pulse Ox 98.2 F 100 H 12 173/73 97 06/08/18 12:00 06/08/18 12:00 06/08/18 12:00 06/08/18 12:00 06/08/18 08:59 Active Medications Acetaminophen (Tylenol -) 650 mg PO Q4H PRN PRN Reason: PAIN LEVEL 1 - 3 Docusate Sodium (Colace -) 100 mg PO Q12H PRN PRN Reason: CONSTIPATION Hydromorphone HCl (Dilaudid Plasterer Spot -) 0 mg PRINCIPAL MECHANICAL ENGINEER PRINCIPAL MECHANICAL ENGINEER [facility]; Protocol Stop: 06/12/18 21:45 Lactated Ringer's (Lactated Ringers Solution) 1,000 mls @ 21 mls/hr IV ASDIR [facility] Last Admin: 06/07/18 17:31 Dose: 21 mls/hr Insulin Aspart (Novolog Vial Sliding Scale -) 1 vial SQ BIDAC [facility]; Protocol Last Admin: 06/08/18 06:18 Dose: 6 units Ketorolac Tromethamine (Toradol Injection -) 30 mg IVPUSH Q6H PRN PRN Reason: PAIN LEVEL 4 - 6 Stop: 06/12/18 23:01 Lorazepam (Ativan Injection -) 1 mg IVPUSH Q6H PRN PRN Reason: MUSCLE SPASMS Last Admin: 06/07/18 23:47 Dose: 1 mg Losartan Potassium (Cozaar -) 25 mg PO DAILY BAUTISTA Last Admin: 06/08/18 09:09 Dose: 25 mg Ondansetron HCl (Zofran Injection) 4 mg IVPUSH Q6H PRN PRN Reason: NAUSEA AND/OR VOMITING Potassium Phos/Sodium Phos (Phos-Nak Packet -) 1 packet PO BID BAUTISTA Last Admin: 06/08/18 09:09 Dose: 1 packet GENERAL: Awake and alert, NAD EYES: Pupils equal reactive to light EARS, NOSE, THROAT: nasal trumpet with nasal canula present LUNGS: Clear to auscultation bilaterally. No wheezes, and no crackles. No accessory muscle use. HEART: S1S2 normal ABDOMEN: Soft, nontender, not distended, normoactive bowel sounds, no guarding, no rebound, no masses. UPPER EXTREMITIES: 2+ pulses, warm, well-perfused. No cyanosis. LOWER EXTREMITIES: well-perfused. No peripheral edema. NEUROLOGICAL: Non-focal exam SKIN: Warm Laboratory Results - last 24 hr 06/07/18 06/08/18 06/08/18 17:28 05:30 05:30 WBC 7.9 RBC 3.28 L Hgb 10.5 L Hct 29.2 L MCV 89.1 MCH 31.8 MCHC 35.7 RDW 12.9 Plt Count 135 MPV 9.7 Absolute Neuts (auto) 6.2 Neutrophils % 79.3 Lymphocytes % 12.5 D Monocytes % 7.3 Eosinophils % 0.6 D Basophils % 0.3 Nucleated RBC % 0 Sodium 139 Potassium 3.7 Chloride 100 Carbon Dioxide 32 Anion Gap 7 L BUN 11 Creatinine 1.1 Creat Clearance w eGFR > 60 POC Glucometer [phone] Random Glucose 256 H Calcium 8.5 Phosphorus 1.0 L* D Magnesium 2.0 Total Bilirubin 1.3 H AST 39 H ALT 25 Alkaline Phosphatase 72 Total Protein 6.1 L Albumin 3.0 L 06/08/18 06:01 WBC RBC Hgb Hct MCV MCH MCHC RDW Plt Count MPV Absolute Neuts (auto) Neutrophils % Lymphocytes % Monocytes % Eosinophils % Basophils % Nucleated RBC % Sodium Potassium Chloride Carbon Dioxide Anion Gap BUN Creatinine Creat Clearance w eGFR POC Glucometer [phone] Random Glucose Calcium Phosphorus Magnesium Total Bilirubin AST ALT Alkaline Phosphatase Total Protein Albumin ASSESSMENT/PLAN: POD #3: L3-S1 laminectomies; L3-4, L4-5 SPO's; L3-4, L4-5, L5-S1 PLIF; L2-S1 PISF; Autograft; Allograft. Spinal Stenosis HTN DM Plan Incentive spirometry Pain control PT/OT/Rehab Bowel regimen BP control Glycemic control with a sliding scale Dr Lee Critical care time spent in reviewing chart, evaluating patient and formulating plan - 36 minutes.
--- NOTE | 2018-06-08 13:47 | PN ---
Physical Exam: SUBJECTIVE: Patient seen and examined in the ICU. States his pain is improving each day. Able to get up and out of bed, ambulating well. Tolerating diet well with no nausea or vomiting. OBJECTIVE: Vital Signs Period Temp Pulse Resp BP Sys/Cotto Pulse Ox Last 24 Hr 98.0 F-98.6 F 97-111 11-18 133-182/51-79 97-97 GENERAL: The patient is awake, in no acute distress. HEAD: Normal with no signs of trauma. EYES: sclera anicteric, conjunctiva clear. No ptosis. ENT: Ears normal, nares patent, oropharynx clear without exudates, moist mucous membranes. NECK: Trachea midline, full range of motion, supple. LUNGS: Breath sounds equal, clear to auscultation bilaterally, no wheezes, no crackles, no accessory muscle use. HEART: Tachycardic, regular rhythm, S1, S2 without murmur, rub or gallop. ABDOMEN: Soft, nontender, nondistended, normoactive bowel sounds, no guarding, no rebound, no hepatosplenomegaly, no masses. EXTREMITIES: warm, well-perfused, no edema. NEUROLOGICAL: Cranial nerves II through XII grossly intact. gait not observed. 5/5 Strength of LE, sensation in tact SKIN: Warm, dry, normal turgor, no rashes or lesions noted Laboratory Results - last 24 hr 06/07/18 06/08/18 06/08/18 17:28 05:30 05:30 WBC 7.9 RBC 3.28 L Hgb 10.5 L Hct 29.2 L MCV 89.1 MCH 31.8 MCHC 35.7 RDW 12.9 Plt Count 135 MPV 9.7 Absolute Neuts (auto) 6.2 Neutrophils % 79.3 Lymphocytes % 12.5 D Monocytes % 7.3 Eosinophils % 0.6 D Basophils % 0.3 Nucleated RBC % 0 Sodium 139 Potassium 3.7 Chloride 100 Carbon Dioxide 32 Anion Gap 7 L BUN 11 Creatinine 1.1 Creat Clearance w eGFR > 60 POC Glucometer [phone] Random Glucose 256 H Calcium 8.5 Phosphorus 1.0 L* D Magnesium 2.0 Total Bilirubin 1.3 H AST 39 H ALT 25 Alkaline Phosphatase 72 Total Protein 6.1 L Albumin 3.0 L 06/08/18 06:01 WBC RBC Hgb Hct MCV MCH MCHC RDW Plt Count MPV Absolute Neuts (auto) Neutrophils % Lymphocytes % Monocytes % Eosinophils % Basophils % Nucleated RBC % Sodium Potassium Chloride Carbon Dioxide Anion Gap BUN Creatinine Creat Clearance w eGFR POC Glucometer [phone] Random Glucose Calcium Phosphorus Magnesium Total Bilirubin AST ALT Alkaline Phosphatase Total Protein Albumin Active Medications Generic Name Dose Route Start Last Admin Trade Name Freq PRN Reason Stop Dose Admin Acetaminophen 650 mg 06/07/18 16:41 Tylenol - PO Q4H PRN PAIN LEVEL 1 - 3 Docusate Sodium 100 mg 06/07/18 16:41 Colace - PO Q12H PRN CONSTIPATION Hydromorphone HCl 0 mg 06/07/18 16:41 Dilaudid Assignment Officer - OPERATIONS/DISPATCH 06/12/18 21:45 OPERATIONS/DISPATCH BAUTISTA Protocol Lactated Ringer's 1,000 mls @ 21 mls/hr 06/07/18 16:53 06/07/18 17:31 Lactated Ringers Solution IV 21 mls/hr ASDIR BAUTISTA Administration Insulin Aspart 1 vial 06/08/18 07:00 06/08/18 06:18 Novolog Vial Sliding Scale - SQ 6 units BIDAC BAUTISTA Administration Protocol Ketorolac Tromethamine 30 mg 06/07/18 23:02 Toradol Injection - IVPUSH 06/12/18 23:01 Q6H PRN PAIN LEVEL 4 - 6 Lorazepam 1 mg 06/07/18 16:41 06/07/18 23:47 Ativan Injection - IVPUSH 1 mg Q6H PRN Administration MUSCLE SPASMS Losartan Potassium 25 mg 06/08/18 10:00 06/08/18 09:09 Cozaar - PO 25 mg DAILY BAUTISTA Administration Ondansetron HCl 4 mg 06/07/18 16:41 Zofran Injection IVPUSH Q6H PRN NAUSEA AND/OR VOMITING Potassium Phos/Sodium Phos 1 packet 06/08/18 10:00 06/08/18 09:09 Phos-Nak Packet - PO 1 packet BID BAUTISTA Administration ASSESSMENT/PLAN: 63 yo male admitted to the ICU s/p L3-S1 laminectomy, L3-L4/L4-L5 SPO, L3-S1 PLIF, L2-S1 PISF. Post-op day 3 Neuro -post-op day 3 -No acute neuro dysfunction Cardio -HTN Cozar 25 mg PO Daily Respiratory -No known respiratory problems -Incentive spirometry to decrease risk of post-op atelectasis/pneumonia GI -tolerating diet with no signs of post-op ileus -Colace 100 mg PO BID PRN constipation -Zofran PRN for nausea/vomiting Endocrine -DM Insulin Sliding scale, will adjust as necessary for glycemic control 140-180 Post-op Management -Pain control: OPERATIONS/DISPATCH as per anesthesia Pain well controlled, can be switched to PO -OOB DVT Prophylaxis -TEDs/SCDs only as per surgery FEN -Fluids: None -Electrolytes: Phos: 1.0, repleted, K+: 3.7, repleted, will follow BMP -Nutrition: Diabetic/Sodium controlled diet, bowel regimen Disposition Transfer to Med/Surg Problem List - Problems (1) HTN (hypertension) Code(s): I10 - ESSENTIAL (PRIMARY) HYPERTENSION (2) Diabetes mellitus Code(s): E11.9 - TYPE 2 DIABETES MELLITUS WITHOUT COMPLICATIONS (3) Chronic low back pain Code(s): M54.5 - LOW BACK PAIN; G89.29 - OTHER CHRONIC PAIN Visit type - Emergency Visit Emergency Visit: No - New Patient This patient is new to me today: No - Critical Care Critical Care patient: Yes Total Critical Care Time (in minutes): 35 Critical Care Statement: The care of this patient involved high complexity decision making to prevent further life threatening deterioration of the patient 's condition and/or to evaluate & treat vital organ system(s) failure or risk of failure.
--- NOTE | 2018-06-08 15:22 | PN ---
Progress Note (short form) - Note Progress Note: Pain Follow up Discontinue MAIL CARRIER AND CLERK as patient can take oral meds. Gena Dowell MD
[2018-06-08 16:11] VITALS: BMI 29.0
[2018-06-08] MEDS ORDERED: SODIUM PHOSPHATE - 30 MM in SODIUM CHLORIDE 500 ML IVPB ONE (17:22)
--- NOTE | 2018-06-08 17:26 | PN ---
Teaching Attending Note Name of Resident: Zachary Warren ATTENDING PHYSICIAN STATEMENT I saw and evaluated the patient. I reviewed the resident's note and discussed the case with the resident. I agree with the resident's findings and plan as documented with exceptions below. SUBJECTIVE: 63 yof with PMHx of IDDM, HTN, spinal stenosis, admitted for elective spinal surgery. s/p surgery on 06/05/2018, monitored in ICU with no concerns. Currently patient reports pain, limited movements, taken off GOLF TECHNICIAN 2 hours. Unsure of the last BM. but passing gas. No fevers, chills, cough, dyspnea, chest pain, palpitations, dizziness. 12 point ROS done, neg currently except for pain. OBJECTIVE: Vital Signs Period Temp Pulse Resp BP Sys/Cotto Pulse Ox Last 24 Hr 98.0 F-98.6 F 97-111 11-18 133-182/51-79 97-97 Intake & Output 06/05/18 06/06/18 06/07/18 06/08/18 23:59 23:59 23:59 23:59 Intake Total 2500 1500 2860 520 Output Total 1730 1050 2100 500 Balance 770 450 760 20 Weight 224 lb 224 lb 223 lb 2 oz 226 lb 6 oz GENERAL: Awake, alert, and oriented to place, person, in mild distress from pain HEAD: Normal with no signs of trauma. EYES: Pupils equal, round and reactive to light, extraocular movements intact, sclera anicteric, conjunctiva clear. No lid lag. EARS, NOSE, THROAT: Ears normal, nares patent, oropharynx clear without exudates. Moist mucous membranes. NECK: soft, supple, no JVD LUNGS: Breath sounds equal, clear to auscultation bilaterally. decreased effort and limited exam from pain. HEART: S1S2 regular ABDOMEN: Soft, nontender throughout, distended, positive bowel sounds, no voluntary or involuntary guarding or rigidity MUSCULOSKELETAL: spinal dressing, with bleeding in the lower lumbo-sacral area UPPER EXTREMITIES: 2+ pulses, warm, well-perfused. No cyanosis. No clubbing. No peripheral edema. LOWER EXTREMITIES: 2+ pulses, warm, well-perfused. No calf tenderness. No peripheral edema. NEUROLOGICAL: Cranial nerves II-XII intact. Normal speech. lower extremity power 5/5, sensation intact to light touch PSYCHIATRIC: Cooperative. Good eye contact. Appropriate mood and affect. SKIN: Warm, dry, normal turgor, no rashes or lesions noted, normal capillary refill. Home Medications Medication Instructions Recorded Insulin Degludec [Tresiba 36 unit SQ HS 06/02/18 Flextouch U-100] Insulin Lispro [Humalog] 14 unit SQ DAILY 06/02/18 Losartan Potassium 25 mg PO DAILY 06/02/18 Active Medications Acetaminophen (Tylenol -) 650 mg PO Q4H PRN PRN Reason: PAIN LEVEL 1 - 3 Docusate Sodium (Colace -) 100 mg PO Q12H PRN PRN Reason: CONSTIPATION Sodium Phosphate 30 mm/ Sodium (Chloride) 510 mls @ 63.75 mls/hr IVPB ONCE ONE Stop: 06/09/18 01:21 Insulin Aspart ([facility] Vial Sliding Scale -) [facility] Protocol Last Admin: 06/08/18 06:18 Dose: 6 units Insulin Detemir (Levemir Vial) 20 units SQ [facility] Ketorolac Tromethamine (Toradol Injection -) 30 mg IVPUSH Q6H PRN PRN Reason: PAIN LEVEL 4 - 6 Stop: 06/12/18 23:01 Lorazepam (Ativan Injection -) 1 mg IVPUSH Q6H PRN PRN Reason: MUSCLE SPASMS Last Admin: 06/07/18 23:47 Dose: 1 mg Losartan Potassium (Cozaar -) 25 mg PO DAILY [facility] Last Admin: 06/08/18 09:09 Dose: 25 mg Ondansetron HCl (Zofran Injection) 4 mg IVPUSH Q6H PRN PRN Reason: NAUSEA AND/OR VOMITING Laboratory Results - last 24 hr 06/07/18 06/08/18 06/08/18 17:28 05:30 05:30 WBC 7.9 RBC 3.28 L Hgb 10.5 L Hct 29.2 L MCV 89.1 MCH 31.8 MCHC 35.7 RDW 12.9 Plt Count 135 MPV 9.7 Absolute Neuts (auto) 6.2 Neutrophils % 79.3 Lymphocytes % 12.5 D Monocytes % 7.3 Eosinophils % 0.6 D Basophils % 0.3 Nucleated RBC % 0 Sodium 139 Potassium 3.7 Chloride 100 Carbon Dioxide 32 Anion Gap 7 L BUN 11 Creatinine 1.1 Creat Clearance w eGFR > 60 POC Glucometer [phone] Random Glucose 256 H Calcium 8.5 Phosphorus 1.0 L* D Magnesium 2.0 Total Bilirubin 1.3 H AST 39 H ALT 25 Alkaline Phosphatase 72 Total Protein 6.1 L Albumin 3.0 L 06/08/18 06:01 WBC RBC Hgb Hct MCV MCH MCHC RDW Plt Count MPV Absolute Neuts (auto) Neutrophils % Lymphocytes % Monocytes % Eosinophils % Basophils % Nucleated RBC % Sodium Potassium Chloride Carbon Dioxide Anion Gap BUN Creatinine Creat Clearance w eGFR POC Glucometer [phone] Random Glucose Calcium Phosphorus Magnesium Total Bilirubin AST ALT Alkaline Phosphatase Total Protein Albumin EKG Sinus rhythm 100, no acute ST-T changes. ASSESSMENT AND PLAN: 63 yof with PMhx of IDDM, HTN, Spinal stenosis s/p elective L3-S1 laminectomies , spinal fusion and surgery. -Spinal stenosis s/p surgery 06/05/2018 -Severe hypophosphatemia -IDDM -HTN Plan: Wound care per Dr. Willams. PT eval, incentive spirometry. DVTPPX per Dr. Willams. resume home oxycontin and oxycodone prn. IV phos supplementation. EKG non concerning. repeat phos level later today. Aggressive bowel regimen. Start levemir 20 units hs, ISS, diabetic diet. Continue levemir. Better pain control before titrating anti-hypertensives. DVTPPx per spine surgery. Dispo OOB and activity, SNF vs home over next 48 hours based on clinical course. Plan discussed with patient and at bedside in detail, all questions answered.
[2018-06-08] MEDS ORDERED: INSULIN (NOVOLOG) ASPART 100 UNITS/ML 10ML VIAL ONE ×2 (17:42→21:28)
[2018-06-08] MEDS ORDERED: POLYETHYLENE GLYCOL 3350 119 GM BTL PO ONE (18:31)
--- NOTE | 2018-06-08 18:36 | HP ---
<KelvinZachary - Last Filed: 06/08/18 19:23> CHIEF COMPLAINT: Back pain PCP: HISTORY OF PRESENT ILLNESS: Pt. endorses having back pain for over 30 years that has gotten progressively worse. Pt. stated that the pain radiated down to his legs and hips. Pt. took home medications of Percocet and Oxycontin for pain management that began to fail. Pt. presents POD 4 for management s/p laminectomy. Pt. endorses passing urine and gas, cannot remember last BM. Denies , fever, chills, dizziness, chest pain or SOB. Recent Travel: Did not ask PAST MEDICAL HISTORY: DM2, HTN PAST SURGICAL HISTORY: None Social History: Smoking: past smoker, quit 25 yrs ago Alcohol:No Drugs: No Family History: Non-contributory Allergies No Known Drug Allergies Allergy (Verified 06/05/18 11:12) HOME MEDICATIONS: Home Medications Medication Instructions Recorded Insulin Degludec [Tresiba 36 unit SQ HS 06/02/18 Flextouch U-100] Insulin Lispro [Humalog] 14 unit SQ DAILY 06/02/18 Losartan Potassium 25 mg PO DAILY 06/02/18 REVIEW OF SYSTEMS CONSTITUTIONAL: Absent: fever, chills, diaphoresis, generalized weakness, malaise, loss of appetite, weight change HEENT: Absent: rhinorrhea, nasal congestion, throat pain, throat swelling, difficulty swallowing, mouth swelling, ear pain, eye pain, visual changes CARDIOVASCULAR: Absent: chest pain, syncope, palpitations, irregular heart rate, lightheadedness , peripheral edema RESPIRATORY: Absent: cough, shortness of breath, dyspnea with exertion, orthopnea, wheezing, stridor, hemoptysis GASTROINTESTINAL: Absent: abdominal pain, abdominal distension, nausea, vomiting, diarrhea, constipation, melena, hematochezia GENITOURINARY: Absent: dysuria, frequency, urgency, hesitancy, hematuria, flank pain, genital pain MUSCULOSKELETAL: back pain Absent: myalgia, arthralgia, joint swelling, neck pain SKIN: Absent: rash, itching, pallor HEMATOLOGIC/IMMUNOLOGIC: Absent: easy bleeding, easy bruising, lymphadenopathy, frequent infections ENDOCRINE: Absent: unexplained weight gain, unexplained weight loss, heat intolerance, cold intolerance NEUROLOGIC: mental status changes Absent: headache, focal weakness or paresthesias, dizziness, unsteady gait, seizure, , bladder or bowel incontinence PSYCHIATRIC: anxiety Absent: , depression, suicidal or homicidal ideation, hallucinations. PHYSICAL EXAMINATION Vital Signs - 24 hr 06/07/18 06/07/18 06/07/18 19:48 20:00 22:00 Temperature 98.6 F Pulse Rate 109 H 109 H Respiratory 14 11 L Rate Blood Pressure 157/57 146/52 O2 Sat by Pulse 97 Oximetry (%) 06/08/18 06/08/18 06/08/18 00:00 02:00 04:00 Temperature 98.2 F Pulse Rate 111 H 104 H 104 H Respiratory 11 L 18 12 Rate Blood Pressure 153/57 139/68 139/68 O2 Sat by Pulse Oximetry (%) 06/08/18 06/08/18 06/08/18 06:00 08:00 08:59 Temperature 98.0 F Pulse Rate 101 H 103 H Respiratory 11 L 12 Rate Blood Pressure 133/51 182/69 O2 Sat by Pulse 97 Oximetry (%) 06/08/18 06/08/18 06/08/18 09:50 10:00 12:00 Temperature 98.2 F Pulse Rate 97 H 103 H 100 H Respiratory 12 12 Rate Blood Pressure 164/79 155/66 173/73 O2 Sat by Pulse Oximetry (%) 06/08/18 06/08/18 06/08/18 14:00 16:00 17:28 Temperature 98.1 F 98.0 F 98.4 F Pulse Rate 104 H 104 H 101 H Respiratory 12 12 16 Rate Blood Pressure 157/71 158/71 157/71 O2 Sat by Pulse Oximetry (%) GENERAL: Awake, alert, and fully oriented, in moderate distress from back pain. HEAD: Normal with no signs of trauma. EYES: Pupils equal, round and reactive to light, extraocular movements intact, sclera anicteric, conjunctiva clear. EARS, NOSE, THROAT: nares patent, oropharynx clear without exudates. Moist mucous membranes. NECK: supple without lymphadenopathy, JVD, or masses. LUNGS: Breath sounds equal, clear to auscultation bilaterally. No wheezes, and no crackles. No accessory muscle use. ABDOMEN: Soft, nontender, mildly distended, normoactive bowel sounds, no guarding, no rebound, no masses. MUSCULOSKELETAL: Normal range of motion at all joints. No bony deformities or tenderness. UPPER EXTREMITIES: warm, well-perfused. No cyanosis. No peripheral edema, 5/5 muscle strength. LOWER EXTREMITIES: warm, well-perfused. No calf tenderness. No peripheral edema , 5/5 muscle strength. NEUROLOGICAL: Cranial nerves II-XII intact. Normal speech. PSYCHIATRIC: Cooperative. Good eye contact. Appropriate mood and affect. SKIN: Warm, dry, wound site is non-purulent, some discharge Laboratory Results - last 24 hr 06/07/18 06/08/18 06/08/18 17:28 05:30 05:30 WBC 7.9 RBC 3.28 L Hgb 10.5 L Hct 29.2 L MCV 89.1 MCH 31.8 MCHC 35.7 RDW 12.9 Plt Count 135 MPV 9.7 Absolute Neuts (auto) 6.2 Neutrophils % 79.3 Lymphocytes % 12.5 D Monocytes % 7.3 Eosinophils % 0.6 D Basophils % 0.3 Nucleated RBC % 0 Sodium 139 Potassium 3.7 Chloride 100 Carbon Dioxide 32 Anion Gap 7 L BUN 11 Creatinine 1.1 Creat Clearance w eGFR > 60 POC Glucometer [phone] Random Glucose 256 H Calcium 8.5 Phosphorus 1.0 L* D Magnesium 2.0 Total Bilirubin 1.3 H AST 39 H ALT 25 Alkaline Phosphatase 72 Total Protein 6.1 L Albumin 3.0 L 06/08/18 06:01 WBC RBC Hgb Hct MCV MCH MCHC RDW Plt Count MPV Absolute Neuts (auto) Neutrophils % Lymphocytes % Monocytes % Eosinophils % Basophils % Nucleated RBC % Sodium Potassium Chloride Carbon Dioxide Anion Gap BUN Creatinine Creat Clearance w eGFR POC Glucometer [phone] Random Glucose Calcium Phosphorus Magnesium Total Bilirubin AST ALT Alkaline Phosphatase Total Protein Albumin ASSESSMENT/PLAN: 83 y.o. M w/ PMHx. of DM2 and HTN presents s/p laminectomy procedure for chronic back pain of 30 years duration. #Back Pain s/p laminectomy -c/w Percocet and Oxycontin for break throuh pain and basal pain dose respectively -Neurochecks QShift -EKG(06/08/18): benign -Incentive Spirometry: 10 breaths/hr #Hypophasphatemia -Phosphorous of 1 -repleting phosphorous w/ Sodium Phosphorous 30mm in NS -f/u Phos level @ 10pm 06/08/18, if low contact Dr. Gupta for guidance. #DM2 -Glucose: 256 (7/19/18) -BGM -Sliding Scale -Diabetic diet #HTN -c/w Losartan 25mg #DVT PPx. -SCDs Visit type - Emergency Visit Emergency Visit: No - New Patient This patient is new to me today: Yes Date on this admission: 06/08/18 - Critical Care Critical Care patient: No Hospitalist Screening - Colonoscopy Questionnaire Colonoscopy Questionnaire: Colonoscopy Questionnaire - Patient: 50 - 75 years old and never had a screening colonoscopy: Unknown History of colon or rectal polyps, or CA: Unknown History of IBD, Crohn's disease or UC: Unknown History of abdominal radiation therapy as a child: Unknown - Relative: 1 with colon or rectal CA, or polyps at age 60 or younger: Unknown Colon or rectal CA diagnosed at age 45 or younger: Unknown Multiple relatives with colon or rectal CA: Unknown - Outcome: Screening Result: Negative Screen <Gautam Gupta - Last Filed: 06/09/18 13:04> Correction: Phos levels to be monitored and repleted accordingly. Signed out to the overnight team. Hospitalist Screening - Colonoscopy Questionnaire Colonoscopy Questionnaire: Colonoscopy Questionnaire
[2018-06-08] MEDS: HYDROmorphone *PCA* 10MG/50ML DISP.SYRIN PCA SCH ×2 (20:00→20:03)
[2018-06-08] MEDS: oxyCODONE HCL 10 MG SUSTAINED ACTING TABLET PO SCH (21:30)
[2018-06-08] MEDS: SENNOSIDES 8.6MG TABLET (FP) PO SCH (21:30)
[2018-06-08] MEDS: DOCUSATE SODIUM 100 MG CAPSULE (FP) PO SCH (21:31)
[2018-06-08] MEDS: oxyCODONE HCL 5 MG TABLET PO PRN (21:36)
[2018-06-08] MEDS ORDERED: INSULIN (LEVEMIR) 100 UNITS/ML UNITS SQ SCH (22:00)
[2018-06-09] MEDS: INSULIN SLIDING SCALE (NOVOLOG) 1 VIAL SQ SCH ×4 (06:16→21:55)
[2018-06-09] MEDS: DOCUSATE SODIUM 100 MG CAPSULE (FP) PO SCH ×3 (06:16→21:53)
[2018-06-09 07:20] LABS: BASO % 0.5 % (0-2.0); EOS % 2.4 % (0-4.5); HEMATOCRIT 27.5 % (35.4-49); HEMOGLOBIN 9.8 GM/dL (11.7-16.9); LYMPH % 15.9 % (8-40); MCH 31.8 pg (25.7-33.7); MCHC 35.8 g/dl (32.0-35.9); MEAN CELL VOLUME 88.9 fl (80-96); MEAN PLT VOLUME 9.4 fl (7.5-11.1); MONO % 6.5 % (3.8-10.2); NEUT % 74.7 % (42.8-82.8); PLATELET COUNT 148 K/MM3 (134-434); RBC 3.09 M/mm3 (4.00-5.60); RDW 12.9 % (11.9-15.9); WHITE BLOOD COUNT 7.6 K/mm3 (4.0-10.0)
[2018-06-09 07:49] LABS: ALBUMIN 2.8 g/dl (3.4-5.0); ANION GAP 4 (8-16); BILIRUBIN,TOTAL 1.3 mg/dL (0.2-1.0); BLOOD UREA NITROGEN 10 mg/dL (7-18); CALCIUM 8.4 mg/dL (8.5-10.1); CHLORIDE 100 mmol/L (98-107); CO2 34 mmol/L (21-32); CREATININE 1.1 mg/dL (0.7-1.3); GLUCOSE,RANDOM 184 mg/dL (74-106); MAGNESIUM 2.1 mg/dL (1.8-2.4); PHOSPHOROUS 2.4 mg/dL (2.5-4.9); POTASSIUM 3.5 mmol/L (3.5-5.1); SGOT/AST 42 U/L (15-37); SGPT/ALT 36 U/L (12-78); SODIUM 138 mmol/L (136-145); TOT PROT 6.1 g/dl (6.4-8.2)
[2018-06-09 07:50] LABS: ALK PHOS 91 U/L (45-117)
[2018-06-09] MEDS: oxyCODONE HCL 5 MG TABLET PO PRN ×2 (08:21→16:25)
[2018-06-09] MEDS: LOSARTAN POTASSIUM 25 MG TABLET PO SCH (09:18)
[2018-06-09] MEDS: oxyCODONE HCL 10 MG SUSTAINED ACTING TABLET PO SCH ×2 (09:18→21:55)
[2018-06-09] MEDS ORDERED: PT OWN MED DRAWER 7, Y5N ONE (09:30)
[2018-06-09] MEDS ORDERED: SODIUM PHOSPHATE - 30 MM in SODIUM CHLORIDE 250 ML IVPB ONE (10:00)
[2018-06-09] MEDS ORDERED: INSULIN (NOVOLOG) ASPART 100 UNITS/ML 10ML VIAL ONE (11:28)
[2018-06-09] MEDS ORDERED: INSULIN (LEVEMIR) 100 UNITS/ML UNITS SQ ONE (11:28)
[2018-06-09] MEDS ORDERED: INSULIN (LEVEMIR) 100 UNITS/ML UNITS SQ SCH (13:14)
--- NOTE | 2018-06-09 13:14 | PN ---
Teaching Attending Note Name of Resident: Zachary Warren ATTENDING PHYSICIAN STATEMENT I saw and evaluated the patient. I reviewed the resident's note and discussed the case with the resident. I agree with the resident's findings and plan as documented with exceptions below. SUBJECTIVE: Patient seen and examined. back pain improved, some thigh pain but overall better, no new leg weakness/tingling or numbness noted. OBJECTIVE: Vital Signs Period Temp Pulse Resp BP Sys/Cotto Pulse Ox Last 24 Hr 98.0 F-100.3 F 98-104 12-20 141-165/71-90 Intake & Output 06/06/18 06/07/18 06/08/18 06/09/18 23:59 23:59 23:59 23:59 Intake Total 1500 2860 1020 300 Output Total 1050 2100 1100 850 Balance 450 760 -80 -550 Weight 224 lb 223 lb 2 oz 226 lb 6 oz General: lying in bed in no acute distress Chest: CTAB, no rales or wheezing Abdomen:soft, ?mild distension, NT throughout, positive bowel sounds Extremities LE -no edema, SLR uper 40 degrees bilateral LE, power 5/5, sensation positive to light touch Musculoskeletal: spinal dressing with minimal blood soaking in lower lumbar region, no surrounding swelling/erythema or discharge Home Medications Medication Instructions Recorded Insulin Degludec [Tresiba 36 unit SQ HS 06/02/18 Flextouch U-100] Insulin Lispro [Humalog] 14 unit SQ DAILY 06/02/18 Losartan Potassium 25 mg PO DAILY 06/02/18 Active Medications Acetaminophen (Tylenol -) 650 mg PO Q4H PRN PRN Reason: PAIN LEVEL 1 - 3 Docusate Sodium (Colace -) 100 mg PO TID [facility] Last Admin: 06/09/18 06:16 Dose: 100 mg Sodium Phosphate 30 mm/ Sodium (Chloride) 260 mls @ 32.5 mls/hr IVPB ONCE ONE Stop: 06/09/18 17:59 Last Admin: 06/09/18 09:20 Dose: 32.5 mls/hr Insulin Aspart (Novolog Vial Sliding Scale -) 1 vial SQ [facility]; Protocol Last Admin: 06/09/18 11:36 Dose: 4 units Insulin Detemir (Levemir Vial) 20 units SQ [facility] Last Admin: 06/08/18 21:43 Dose: 20 units Lorazepam (Ativan Injection -) 1 mg IVPUSH Q6H PRN PRN Reason: MUSCLE SPASMS Last Admin: 06/07/18 23:47 Dose: 1 mg Losartan Potassium (Cozaar -) 25 mg PO DAILY [facility] Last Admin: 06/09/18 09:18 Dose: 25 mg Ondansetron HCl (Zofran Injection) 4 mg IVPUSH Q6H PRN PRN Reason: NAUSEA AND/OR VOMITING Oxycodone HCl (Roxicodone -) 5 mg PO Q4H PRN PRN Reason: PAIN LEVEL 7-10 Last Admin: 06/09/18 08:21 Dose: 5 mg Oxycodone HCl (Oxycontin -) 10 mg PO BID [facility] Last Admin: 06/09/18 09:18 Dose: 10 mg Senna (Senna -) 2 tab PO HS [facility] Last Admin: 06/08/18 21:30 Dose: 2 tab Laboratory Results - last 24 hr 06/08/18 06/08/18 06/09/18 21:30 21:40 06:14 WBC RBC Hgb Hct MCV MCH MCHC RDW Plt Count MPV Absolute Neuts (auto) Neutrophils % Lymphocytes % Monocytes % Eosinophils % Basophils % Nucleated RBC % Sodium Potassium Chloride Carbon Dioxide Anion Gap BUN Creatinine Creat Clearance w eGFR POC Glucometer 235 189 Random Glucose Calcium Phosphorus 1.8 L D Magnesium Total Bilirubin AST ALT Alkaline Phosphatase Total Protein Albumin 06/09/18 06/09/18 06/09/18 06:20 06:20 11:33 WBC 7.6 RBC 3.09 L Hgb 9.8 L Hct 27.5 L MCV 88.9 MCH 31.8 MCHC 35.8 RDW 12.9 Plt Count 148 MPV 9.4 Absolute Neuts (auto) 5.7 Neutrophils % 74.7 Lymphocytes % 15.9 D Monocytes % 6.5 Eosinophils % 2.4 D Basophils % 0.5 Nucleated RBC % 0 Sodium 138 Potassium 3.5 Chloride 100 Carbon Dioxide 34 H Anion Gap 4 L BUN 10 Creatinine 1.1 Creat Clearance w eGFR > 60 POC Glucometer 250 Random Glucose 184 H D Calcium 8.4 L Phosphorus 2.4 L D Magnesium 2.1 Total Bilirubin 1.3 H AST 42 H ALT 36 D Alkaline Phosphatase 91 D Total Protein 6.1 L Albumin 2.8 L ASSESSMENT AND PLAN: 63 yof with PMhx of IDDM, HTN, Spinal stenosis s/p elective L3-S1 laminectomies , spinal fusion and surgery. -Spinal stenosis s/p surgery 06/05/2018 -Severe hypophosphatemia -IDDM -HTN Plan: Wound care per Dr. Willams. As discussed with RN, seen by Dr. Willams, mild bloody drainage expected given no drain, improved today. Continue to monitor H/h PT eval, incentive spirometry. Home oxycontin/oxycodone prn. Additional 15 mmol Phos IV today. Aggressive bowel regimen. Increase levemir to 25 units hs, ISS, diabetic diet. Better pain control before titrating anti-hypertensives. DVTPPx per Dr. Willams. Dispo OOB and activity, SNF vs home over next 48 hours based on clinical course. Plan discussed with patient in detail, all questions answered.
[2018-06-09] MEDS: ACETAMINOPHEN 325 MG TABLET (FP) PO PRN (16:24)
--- NOTE | 2018-06-09 18:14 | PN ---
Progress Note (short form) - Note Progress Note: POD#4 In ICU C/O incisional pain Mental status Fully orientated for time person and place Has not gotten out of bed as yet Vitals stable CVS Stable RESP Clear ABD Soft Passing gas Neuro Fully in tact Wound dry PLAN Mobilize Pain mx D/C planning
--- NOTE | 2018-06-09 20:23 | PN ---
Physical Exam: SUBJECTIVE: Patient seen and examined. No fevers. Pt. used all the pain medications overnight. Pt. c/o weakness in his left thigh. Pt. admits to walking very little. OBJECTIVE: Vital Signs Period Temp Pulse Resp BP Sys/Cotto Pulse Ox Last 24 Hr 98.0 F-100.3 F 86-100 16-20 141-169/74-90 97 GENERAL: The patient is awake, alert, and fully oriented, in moderate distress. HEAD: Normal with no signs of trauma. EYES: PERRL, extraocular movements intact, sclera anicteric, conjunctiva clear. No ptosis. ENT: oropharynx clear without exudates, moist mucous membranes. NECK: Trachea midline, supple. LUNGS: Breath sounds equal, clear to auscultation bilaterally, no wheezes, no crackles, no accessory muscle use. HEART: Regular rate and rhythm, S1, S2 without murmur, rub or gallop. ABDOMEN: Soft, nontender, nondistended, normoactive bowel sounds, no guarding, no rebound EXTREMITIES: 5/5 strength in RLE, 4/5 strength in LLE, 5/5 strength in UE b/l. All extremities were warm, well-perfused, without edema and with in tact sensation. NEUROLOGICAL: Cranial nerves II through XII grossly intact. Normal speech. PSYCH: Normal mood, normal affect. Laboratory Results - last 24 hr 06/08/18 06/08/18 06/09/18 21:30 21:40 06:14 WBC RBC Hgb Hct MCV MCH MCHC RDW Plt Count MPV Absolute Neuts (auto) Neutrophils % Lymphocytes % Monocytes % Eosinophils % Basophils % Nucleated RBC % Sodium Potassium Chloride Carbon Dioxide Anion Gap BUN Creatinine Creat Clearance w eGFR POC Glucometer 235 189 Random Glucose Calcium Phosphorus 1.8 L D Magnesium Total Bilirubin AST ALT Alkaline Phosphatase Total Protein Albumin 06/09/18 06/09/18 06/09/18 06:20 06:20 11:33 WBC 7.6 RBC 3.09 L Hgb 9.8 L Hct 27.5 L MCV 88.9 MCH 31.8 MCHC 35.8 RDW 12.9 Plt Count 148 MPV 9.4 Absolute Neuts (auto) 5.7 Neutrophils % 74.7 Lymphocytes % 15.9 D Monocytes % 6.5 Eosinophils % 2.4 D Basophils % 0.5 Nucleated RBC % 0 Sodium 138 Potassium 3.5 Chloride 100 Carbon Dioxide 34 H Anion Gap 4 L BUN 10 Creatinine 1.1 Creat Clearance w eGFR > 60 POC Glucometer 250 Random Glucose 184 H D Calcium 8.4 L Phosphorus 2.4 L D Magnesium 2.1 Total Bilirubin 1.3 H AST 42 H ALT 36 D Alkaline Phosphatase 91 D Total Protein 6.1 L Albumin 2.8 L 06/09/18 16:47 WBC RBC Hgb Hct MCV MCH MCHC RDW Plt Count MPV Absolute Neuts (auto) Neutrophils % Lymphocytes % Monocytes % Eosinophils % Basophils % Nucleated RBC % Sodium Potassium Chloride Carbon Dioxide Anion Gap BUN Creatinine Creat Clearance w eGFR POC Glucometer 271 Random Glucose Calcium Phosphorus Magnesium Total Bilirubin AST ALT Alkaline Phosphatase Total Protein Albumin Active Medications Current Medications Acetaminophen (Tylenol -) 650 mg PO Q4H PRN PRN Reason: PAIN LEVEL 1 - 3 Last Admin: 06/09/18 16:24 Dose: 650 mg Docusate Sodium (Colace -) 100 mg PO TID [facility] Last Admin: 06/09/18 15:07 Dose: 100 mg Insulin Aspart (Novolog Vial Sliding Scale -) 1 vial SQ [facility]; Protocol Last Admin: 06/09/18 17:28 Dose: 6 units Insulin Detemir (Levemir Vial) 25 units SQ [facility] Lorazepam (Ativan Injection -) 1 mg IVPUSH Q6H PRN PRN Reason: MUSCLE SPASMS Last Admin: 06/07/18 23:47 Dose: 1 mg Losartan Potassium (Cozaar -) 25 mg PO DAILY [facility] Last Admin: 06/09/18 09:18 Dose: 25 mg Ondansetron HCl (Zofran Injection) 4 mg IVPUSH Q6H PRN PRN Reason: NAUSEA AND/OR VOMITING Oxycodone HCl (Roxicodone -) 5 mg PO Q4H PRN PRN Reason: PAIN LEVEL 7-10 Last Admin: 06/09/18 16:25 Dose: 5 mg Oxycodone HCl (Oxycontin -) 10 mg PO BID [facility] Last Admin: 06/09/18 09:18 Dose: 10 mg Senna (Senna -) 2 tab PO [facility] Last Admin: 06/08/18 21:30 Dose: 2 tab ASSESSMENT/PLAN: 83 y.o. M w/ PMHx. of DM2 and HTN presents s/p laminectomy procedure for chronic back pain of 30 years duration. #Back Pain s/p laminectomy -c/w Percocet and Oxycontin for break throuh pain and basal pain dose respectively -Neurochecks QShift -EKG(06/08/18): benign -Incentive Spirometry: 10 breaths/hr #Hypophasphatemia -Phos: 2.4 -c/w repletion as needed #DM2 -Glucose: 256 (06/08/18) -BGM -Sliding Scale -Diabetic diet #HTN -c/w Losartan 25mg #DVT PPx. -SCDs Visit type - Emergency Visit Emergency Visit: Yes ED Registration Date: 06/05/18 Care time: The patient presented to the Emergency Department on the above date and was hospitalized for further evaluation of their emergent condition. - New Patient This patient is new to me today: No - Critical Care Critical Care patient: No - Discharge Referral Referred to [facility] Med P.C.: No
[2018-06-09] MEDS ORDERED: NAPH,MB-DB/K PH,MBDB POWDER PACKET PO ONE (20:24)
[2018-06-09] MEDS: SENNOSIDES 8.6MG TABLET (FP) PO SCH (21:53)
[2018-06-09] MEDS: LORazepam 2 MG/ML SDV VIAL IVPUSH PRN (22:02)
[2018-06-10] MEDS: oxyCODONE HCL 5 MG TABLET PO PRN ×3 (04:01→17:11)
[2018-06-10] MEDS: DOCUSATE SODIUM 100 MG CAPSULE (FP) PO SCH ×3 (06:05→21:15)
[2018-06-10] MEDS: INSULIN SLIDING SCALE (NOVOLOG) 1 VIAL SQ SCH ×4 (06:05→21:24)
[2018-06-10 07:41] LABS: BASO % 0.6 % (0-2.0); EOS % 4.1 % (0-4.5); HEMATOCRIT 28.9 % (35.4-49); HEMOGLOBIN 10.5 GM/dL (11.7-16.9); LYMPH % 13.4 % (8-40); MCHC 36.2 g/dl (32.0-35.9); MEAN CELL VOLUME 88.4 fl (80-96); MEAN PLT VOLUME 9.5 fl (7.5-11.1); NEUT % 73.9 % (42.8-82.8); PLATELET COUNT 200 K/MM3 (134-434); RBC 3.27 M/mm3 (4.00-5.60); RDW 13.1 % (11.9-15.9); WHITE BLOOD COUNT 7.5 K/mm3 (4.0-10.0)
[2018-06-10] MEDS ORDERED: PT OWN MED DRAWER 7, Y5N ONE (09:22)
[2018-06-10] MEDS: LOSARTAN POTASSIUM 25 MG TABLET PO SCH (09:24)
[2018-06-10] MEDS: oxyCODONE HCL 10 MG SUSTAINED ACTING TABLET PO SCH ×2 (09:25→21:15)
[2018-06-10 09:28] LABS: ANION GAP 9 (8-16); BILIRUBIN,TOTAL 1.3 mg/dL (0.2-1.0); BLOOD UREA NITROGEN 8 mg/dL (7-18); CALCIUM 8.8 mg/dL (8.5-10.1); CHLORIDE 100 mmol/L (98-107); CO2 30 mmol/L (21-32); CREATININE 1.1 mg/dL (0.7-1.3); GLUCOSE,RANDOM 173 mg/dL (74-106); MAGNESIUM 2.2 mg/dL (1.8-2.4); PHOSPHOROUS 2.8 mg/dL (2.5-4.9); POTASSIUM 3.7 mmol/L (3.5-5.1); SGOT/AST 51 U/L (15-37); SODIUM 139 mmol/L (136-145); TOT PROT 6.5 g/dl (6.4-8.2)
[2018-06-10 09:47] LABS: ALK PHOS 114 U/L (45-117); SGPT/ALT 56 U/L (12-78)
[2018-06-10] MEDS ORDERED: POLYETHYLENE GLYCOL 3350 119 GM BTL PO ONE (11:00)
[2018-06-10] MEDS ORDERED: BISACODYL 10 MG SUPP.RECT RC ONE (11:00)
--- NOTE | 2018-06-10 12:22 | PN ---
Teaching Attending Note Name of Resident: Zachary Warren ATTENDING PHYSICIAN STATEMENT I saw and evaluated the patient. I reviewed the resident's note and discussed the case with the resident. I agree with the resident's findings and plan as documented with exceptions below. SUBJECTIVE: patient seen and examined, reports some abdominal discomfort, unsure of last BM. Pain better, improved activity. OBJECTIVE: Vital Signs Period Temp Pulse Resp BP Sys/Cotto Pulse Ox Last 24 Hr 97.4 F-98.9 F 86-94 18-20 144-169/69-88 98 Intake & Output 06/07/18 06/08/18 06/09/18 06/10/18 23:59 23:59 23:59 23:59 Intake Total 2860 1020 1930 200 Output Total 2100 1100 4025 650 Balance -011 Weight 223 lb 2 oz 226 lb 6 oz General: lying in bed in no acute distress Chest: no rales or wheezing Abdomen:soft, mild distension, vague reggie-umbilical tenderness, no voluntary or involuntary guarding or rigidity, positive bowel sounds Extremities; no edema Musculoskeletal: spinal dressing with minimal sanguinous drainage, improved from before, LE power 5/5, sensation intact to light touch Active Medications Acetaminophen (Tylenol -) 650 mg PO Q4H PRN PRN Reason: PAIN LEVEL 1 - 3 Last Admin: 06/09/18 16:24 Dose: 650 mg Docusate Sodium (Colace -) 100 mg PO TID [facility] Last Admin: 06/10/18 06:05 Dose: 100 mg Insulin Aspart (Novolog Vial Sliding Scale -) 1 vial SQ [facility]; Protocol Last Admin: 06/10/18 11:10 Dose: 4 units Insulin Detemir (Levemir Vial) 30 units SQ [facility] Losartan Potassium (Cozaar -) 25 mg PO DAILY [facility] Last Admin: 06/10/18 09:24 Dose: 25 mg Ondansetron HCl (Zofran Injection) 4 mg IVPUSH Q6H PRN PRN Reason: NAUSEA AND/OR VOMITING Oxycodone HCl (Roxicodone -) 5 mg PO Q4H PRN PRN Reason: PAIN LEVEL 7-10 Last Admin: 06/10/18 07:58 Dose: 5 mg Oxycodone HCl (Oxycontin -) 10 mg PO BID [facility] Last Admin: 06/10/18 09:25 Dose: 10 mg Senna (Senna -) 2 tab PO HS [facility] Last Admin: 06/09/18 21:53 Dose: 2 tab Laboratory Results - last 24 hr 06/09/18 06/09/18 06/10/18 16:47 21:52 06:04 WBC RBC Hgb Hct MCV MCH MCHC RDW Plt Count MPV Absolute Neuts (auto) Neutrophils % Lymphocytes % Monocytes % Eosinophils % Basophils % Nucleated RBC % Sodium Potassium Chloride Carbon Dioxide Anion Gap BUN Creatinine Creat Clearance w eGFR POC Glucometer 271 261 180 Random Glucose Calcium Phosphorus Magnesium Total Bilirubin AST ALT Alkaline Phosphatase Total Protein Albumin 06/10/18 06/10/18 06/10/18 06:40 06:40 11:07 WBC 7.5 RBC 3.27 L Hgb 10.5 L Hct 28.9 L MCV 88.4 MCH 32.0 MCHC 36.2 H RDW 13.1 Plt Count 200 D MPV 9.5 Absolute Neuts (auto) 5.6 Neutrophils % 73.9 Lymphocytes % 13.4 Monocytes % 8.0 Eosinophils % 4.1 Basophils % 0.6 Nucleated RBC % 0 Sodium 139 Potassium 3.7 Chloride 100 Carbon Dioxide 30 Anion Gap 9 BUN 8 Creatinine 1.1 Creat Clearance w eGFR > 60 POC Glucometer 223 Random Glucose 173 H Calcium 8.8 Phosphorus 2.8 Magnesium 2.2 Total Bilirubin 1.3 H AST 51 H D ALT 56 D Alkaline Phosphatase 114 D Total Protein 6.5 Albumin 3.0 L ASSESSMENT AND PLAN: 63 yof with PMhx of IDDM, HTN, Spinal stenosis s/p elective L3-S1 laminectomies , spinal fusion and surgery. -Spinal stenosis s/p surgery 06/05/2018 -Severe hypophosphatemia, resolved -Abdominal pain, likely from constipation -IDDM -HTN Plan: Aggresive bowel regimen, add dulcolax x 1, Miralax PO. COntinue docusate/senna, encourage ambulation. Wound care per Dr. Willams. mild sanguinous drainage improved, h/h stable. PT eval, incentive spirometry. Home oxycontin/oxycodone prn. Increase levemir to 30 units hs, ISS, diabetic diet. Better pain control before titrating anti-hypertensives. DVTPPx per Dr. Willams. Dispo OOB and activity, plan for SNF in 24-48 hours if bed available and no new concerns. Plan discussed with patient in detail, all questions answered.
--- NOTE | 2018-06-10 13:08 | PN ---
Physical Exam: SUBJECTIVE: Patient seen and examined. No acute events over night. Pt. endorses pain being better controlled. Pt. c/o abdominal cramping pain, as more painful than his back pain right now. Pt. says he has not had BM since Tuesday (06/04/18) . Pt. has passed urine. OBJECTIVE: Vital Signs Period Temp Pulse Resp BP Sys/Cotto Pulse Ox Last 24 Hr 97.4 F-98.9 F 83-94 18-20 144-169/69-88 98 GENERAL: The patient is awake, alert, and fully oriented, in no acute distress. until pt. sat up, then was in mild distress. HEAD: Normal with no signs of trauma. EYES: extraocular movements intact, sclera anicteric, conjunctiva clear. No ptosis. ENT: oropharynx clear without exudates, moist mucous membranes. LUNGS: Breath sounds equal, clear to auscultation bilaterally, no wheezes, no crackles, no accessory muscle use. HEART: Regular rate and rhythm, S1, S2 without murmur, rub or gallop. ABDOMEN: Soft, nontender, nondistended, normoactive bowel sounds, no guarding EXTREMITIES: 5/5 muscle strength b/l in UE and LE, warm, well-perfused, sensation in tact, no edema. NEUROLOGICAL: Cranial nerves II through XII grossly intact. Normal speech, gait not observed. PSYCH: Normal mood, normal affect. SKIN: Warm, dry, some discharge from wound site Laboratory Results - last 24 hr 06/09/18 06/09/18 06/10/18 16:47 21:52 06:04 WBC RBC Hgb Hct MCV MCH MCHC RDW Plt Count MPV Absolute Neuts (auto) Neutrophils % Lymphocytes % Monocytes % Eosinophils % Basophils % Nucleated RBC % Sodium Potassium Chloride Carbon Dioxide Anion Gap BUN Creatinine Creat Clearance w eGFR POC Glucometer 271 261 180 Random Glucose Calcium Phosphorus Magnesium Total Bilirubin AST ALT Alkaline Phosphatase Total Protein Albumin 06/10/18 06/10/18 06/10/18 06:40 06:40 11:07 WBC 7.5 RBC 3.27 L Hgb 10.5 L Hct 28.9 L MCV 88.4 MCH 32.0 MCHC 36.2 H RDW 13.1 Plt Count 200 D MPV 9.5 Absolute Neuts (auto) 5.6 Neutrophils % 73.9 Lymphocytes % 13.4 Monocytes % 8.0 Eosinophils % 4.1 Basophils % 0.6 Nucleated RBC % 0 Sodium 139 Potassium 3.7 Chloride 100 Carbon Dioxide 30 Anion Gap 9 BUN 8 Creatinine 1.1 Creat Clearance w eGFR > 60 POC Glucometer 223 Random Glucose 173 H Calcium 8.8 Phosphorus 2.8 Magnesium 2.2 Total Bilirubin 1.3 H AST 51 H D ALT 56 D Alkaline Phosphatase 114 D Total Protein 6.5 Albumin 3.0 L Active Medications Current Medications Acetaminophen (Tylenol -) 650 mg PO Q4H PRN PRN Reason: PAIN LEVEL 1 - 3 Last Admin: 06/09/18 16:24 Dose: 650 mg Docusate Sodium (Colace -) 100 mg PO TID [facility] Last Admin: 06/10/18 06:05 Dose: 100 mg Insulin Aspart (Novolog Vial Sliding Scale -) 1 vial SQ [facility]; Protocol Last Admin: 06/10/18 11:10 Dose: 4 units Insulin Detemir (Levemir Vial) 30 units SQ [facility] Losartan Potassium (Cozaar -) 25 mg PO DAILY [facility] Last Admin: 06/10/18 09:24 Dose: 25 mg Ondansetron HCl (Zofran Injection) 4 mg IVPUSH Q6H PRN PRN Reason: NAUSEA AND/OR VOMITING Oxycodone HCl (Roxicodone -) 5 mg PO Q4H PRN PRN Reason: PAIN LEVEL 7-10 Last Admin: 06/10/18 07:58 Dose: 5 mg Oxycodone HCl (Oxycontin -) 10 mg PO BID [facility] Last Admin: 06/10/18 09:25 Dose: 10 mg Senna (Senna -) 2 tab PO [facility] Last Admin: 06/09/18 21:53 Dose: 2 tab ASSESSMENT/PLAN: 83 y.o. M w/ PMHx. of DM2 and HTN presents s/p laminectomy procedure for chronic back pain of 30 years duration. #Back Pain s/p laminectomy -c/w Percocet and Oxycontin for break throuh pain and basal pain dose respectively -Neurochecks QShift -EKG(06/08/18): benign -Incentive Spirometry: 10 breaths/hr #Abdominal pain - Pt. has not had bowel movement since 06/04/18 - Pt. was on Senna and docuasate - Given Ducolax suppository - Given Miralax #Hypophasphatemia -Phos: 2.8 -c/w repletion as needed -resolved #DM2 -Glucose: 173 (06/10/18) -BGM -Sliding Scale -Diabetic diet #HTN -c/w Losartan 25mg #DVT PPx. -SCDs Visit type - Emergency Visit Emergency Visit: Yes ED Registration Date: 06/05/18 Care time: The patient presented to the Emergency Department on the above date and was hospitalized for further evaluation of their emergent condition. - New Patient This patient is new to me today: No - Critical Care Critical Care patient: No - Discharge Referral Referred to [facility] Med P.C.: No
[2018-06-10] MEDS: SENNOSIDES 8.6MG TABLET (FP) PO SCH (21:15)
[2018-06-10] MEDS: INSULIN (LEVEMIR) 100 UNITS/ML UNITS SQ SCH (21:23)
[2018-06-11] MEDS: DOCUSATE SODIUM 100 MG CAPSULE (FP) PO SCH ×3 (06:48→21:15)
[2018-06-11] MEDS: INSULIN SLIDING SCALE (NOVOLOG) 1 VIAL SQ SCH ×4 (06:52→21:16)
[2018-06-11] MEDS: oxyCODONE HCL 5 MG TABLET PO PRN ×3 (06:56→21:14)
[2018-06-11] MEDS ORDERED: morphine SULFATE 4 MG/ML VIAL IVPUSH ONE (09:02)
[2018-06-11] MEDS: oxyCODONE HCL 10 MG SUSTAINED ACTING TABLET PO SCH (11:04)
[2018-06-11] MEDS: LOSARTAN POTASSIUM 25 MG TABLET PO SCH (11:06)
[2018-06-11] MEDS ORDERED: BISACODYL 10 MG SUPP.RECT PR ONE (16:51)
--- NOTE | 2018-06-11 16:51 | PN ---
Physical Exam: SUBJECTIVE: Patient seen and examined, was anxious and diaphoretic earlier, blood sugar 190s-200s, stable vital signs. Currently patient calm, initially did not want insulin, explained that needs the same for persistent hyperglycemia and agreable, denies being on pain meds at home (per 2 days ago, has been on oxycontin and percocet). Wants his pain meds to be tapered. Back symptoms have improved. Unsure of last bowel movement. No abdominal pain or discomfort currently. tolerating diet well. OBJECTIVE: Vital Signs Period Temp Pulse Resp BP Sys/Cotto Pulse Ox Last 24 Hr 97.8 F-99.4 F 71-96 18-20 109-167/50-79 98 GENERAL: lying in bed in no acute distress Chest: CTAB, no rales or wheezing Musculoskeletal: spinal incision and stapes clean no active surrounding erythema /discharge or bleeding noted, LE power 5/5, sensation positive to light touch ABdomen:Soft, distended, NT, positive bowel sounds Extremities: no edema Laboratory Results - last 24 hr 06/10/18 06/10/18 06/11/18 16:39 21:22 06:51 POC Glucometer 292 275 211 06/11/18 06/11/18 08:56 12:04 POC Glucometer 191 312 Active Medications Generic Name Dose Route Start Last Admin Trade Name Freq PRN Reason Stop Dose Admin Acetaminophen 650 mg 06/07/18 16:41 06/09/18 16:24 Tylenol - PO 650 mg Q4H PRN Administration PAIN LEVEL 1 - 3 Docusate Sodium 100 mg 06/08/18 22:00 06/11/18 13:53 Colace - PO 100 mg TID [facility] Administration Insulin Aspart 1 vial 06/08/18 22:00 06/11/18 12:22 Novolog Vial Sliding Scale - SQ 8 units ACHS [facility] Administration Protocol Insulin Detemir 30 units 06/10/18 12:16 06/10/18 21:23 Levemir Vial SQ 30 units HS [facility] Administration Losartan Potassium 25 mg 06/08/18 10:00 06/11/18 11:06 Cozaar - PO 25 mg DAILY [facility] Administration Ondansetron HCl 4 mg 06/07/18 16:41 Zofran Injection IVPUSH Q6H PRN NAUSEA AND/OR VOMITING Oxycodone HCl 5 mg 06/08/18 18:26 06/11/18 13:50 Roxicodone - PO 5 mg Q4H PRN Administration PAIN LEVEL 7-10 Senna 2 tab 06/08/18 22:00 06/10/18 21:15 Senna - PO 2 tab HS [facility] Administration ASSESSMENT/PLAN: 63 yof with PMhx of IDDM, HTN, Spinal stenosis s/p elective L3-S1 laminectomies , spinal fusion and surgery. -Spinal stenosis s/p surgery 06/05/2018 -Severe hypophosphatemia, resolved -Constipation -IDDM -HTN -?Anxiety Plan: AM events noted, patient counseled on compliance with insulin, agreable. Continue levemir and ISS. Declined dulcolax yesterday, agreable to today. Continue docusate/senna. Encourage ambulation. Discussed with Dr. Willams, no wound concerns, will evaluate the patient today. Wound care per Dr. Willams. PT eval, incentive spirometry. D/c oxycontin and morphine. Continue oxycodone/tylenol prn. Levemir to 30 units hs, ISS, diabetic diet. Continue losartan. DVTPPx per Dr. Willams. Dispo OOB and activity, Incentive spirometry. Plan for SNF in 24 hours if bed available and no new concerns. Plan discussed with patient in detail, all questions answered. Visit type - Emergency Visit Emergency Visit: Yes ED Registration Date: 06/05/18 Care time: The patient presented to the Emergency Department on the above date and was hospitalized for further evaluation of their emergent condition. - New Patient This patient is new to me today: No - Critical Care Critical Care patient: No - Discharge Referral Referred to [facility] Med P.C.: No
[2018-06-11] MEDS ORDERED: INSULIN (NOVOLOG) ASPART 100 UNITS/ML 10ML VIAL ONE (20:55)
[2018-06-11] MEDS: SENNOSIDES 8.6MG TABLET (FP) PO SCH (21:16)
[2018-06-11] MEDS: INSULIN (LEVEMIR) 100 UNITS/ML UNITS SQ SCH (21:17)
[2018-06-12] MEDS: DOCUSATE SODIUM 100 MG CAPSULE (FP) PO SCH (06:45)
[2018-06-12 08:24] LABS: HEMATOCRIT 32.1 % (35.4-49); HEMOGLOBIN 11.2 GM/dL (11.7-16.9); MCHC 34.9 g/dl (32.0-35.9); MEAN CELL VOLUME 88.8 fl (80-96); MEAN PLT VOLUME 9.4 fl (7.5-11.1); PLATELET COUNT 250 K/MM3 (134-434); RBC 3.62 M/mm3 (4.00-5.60); WHITE BLOOD COUNT 7.7 K/mm3 (4.0-10.0)
[2018-06-12] MEDS ORDERED: INSULIN (NOVOLOG) ASPART 100 UNITS/ML 10ML VIAL ONE (08:27)
[2018-06-12] MEDS: INSULIN SLIDING SCALE (NOVOLOG) 1 VIAL SQ SCH ×2 (08:35→12:18)
[2018-06-12] MEDS: ACETAMINOPHEN 325 MG TABLET (FP) PO PRN ×2 (08:39→13:14)
--- NOTE | 2018-06-12 08:42 | PN ---
Progress Note (short form) - Note Progress Note: POD#6 In ICU C/O incisional pain Mental status Fully orientated for time person and place Has not gotten out of bed as yet No PT on the weekend Vitals stable CVS Stable RESP Clear ABD Soft Passing gas Neuro Fully in tact Wound Slight serosang drainage PLAN Mobilize Pain mx D/C planning
[2018-06-12] MEDS: LOSARTAN POTASSIUM 25 MG TABLET PO SCH (10:19)
[2018-06-12 11:14] VITALS: BP 122/71
[2018-06-12 11:15] VITALS: PULSE 76
--- NOTE | 2018-06-12 11:15 | DS ---
Physical Exam: SUBJECTIVE: Patient seen and examined OBJECTIVE: Vital Signs Period Temp Pulse Resp BP Sys/Cotto Pulse Ox Last 24 Hr 97.9 F-99.4 F 81-92 20-20 122-155/53-72 98 PHYSICAL EXAM GENERAL: The patient is awake, alert, and fully oriented, in no acute distress. HEAD: Normal with no signs of trauma. EYES: PERRL, extraocular movements intact, sclera anicteric, conjunctiva clear. ENT: Ears normal, nares patent, oropharynx clear without exudates, moist mucous membranes. NECK: Trachea midline, full range of motion, supple. LUNGS: Breath sounds equal, clear to auscultation bilaterally, no wheezes, no crackles, no accessory muscle use. HEART: Regular rate and rhythm, S1, S2 without murmur, rub or gallop. ABDOMEN: Soft, nontender, nondistended, normoactive bowel sounds, no guarding, no rebound, no hepatosplenomegaly, no masses. EXTREMITIES: 2+ pulses, warm, well-perfused, no edema. NEUROLOGICAL: Cranial nerves II through XII grossly intact. Normal speech, gait not observed. PSYCH: Normal mood, normal affect. SKIN: Warm, dry, normal turgor, no rashes or lesions noted. LABS Laboratory Results - last 24 hr 06/11/18 06/11/18 06/11/18 09:00 12:04 17:13 WBC RBC Hgb Hct MCV MCH MCHC RDW Plt Count MPV POC Glucometer 201 312 300 06/11/18 06/12/18 06/12/18 21:11 05:53 06:20 WBC 7.7 RBC 3.62 L Hgb 11.2 L Hct 32.1 L MCV 88.8 MCH 31.0 MCHC 34.9 RDW 13.0 Plt Count 250 D MPV 9.4 POC Glucometer 365 203 HOSPITAL COURSE: Date of Admission:06/05/18 Date of Discharge: 06/12/18 Discharge Summary Reason For Visit: SPINAL STENOSIS Current Active Problems Chronic low back pain (Acute) Diabetes mellitus (Acute) HTN (hypertension) (Acute) Lumbar spinal stenosis (Acute) Condition: Good - Instructions - Home Medications Comprehensive Discharge Medication List: Ambulatory Orders Insulin Degludec [Tresiba Flextouch U-100] 36 unit SQ HS 06/02/18 Insulin Lispro [Humalog] 13 unit SQ TID 06/02/18 Losartan Potassium 25 mg PO DAILY 06/02/18 Insulin Glargine,Hum.rec.anlog [Owen Prince] 30 units SQ HS 06/09/18 - Discharge Referral Referred to [facility] No
[2018-06-12 11:31] VITALS: TEMP 98.1
--- NOTE | 2018-06-12 12:58 | PN ---
Teaching Attending Note Name of Resident: Zachary Warren ATTENDING PHYSICIAN STATEMENT I saw and evaluated the patient. I reviewed the resident's note and discussed the case with the resident. I agree with the resident's findings and plan as documented with exceptions below. SUBJECTIVE: Patient seen and examined, pain better, had a BM, no new complaints, eager to leave. OBJECTIVE: Vital Signs Period Temp Pulse Resp BP Sys/Cotto Pulse Ox Last 24 Hr 97.9 F-99.4 F 76-92 20-20 122-155/53-72 98-99 Intake & Output 06/09/18 06/10/18 06/11/18 06/12/18 23:59 23:59 23:59 23:59 Intake Total 1930 550 690 240 Output Total 4025 750 800 Balance -2095 -200 -110 240 General: lying in bed in no acute distress Chest: CTAB, no rales or wheezing Abdomen:soft, NT Extremities: no edema Musculoskeletal: spinal dressing with minimal serosanquinous spotting, improved , no surrounding erythema, discharge, LE power 5/5, sensation intact to light touch Active Medications Acetaminophen (Tylenol -) 650 mg PO Q4H PRN PRN Reason: PAIN LEVEL 1 - 3 Last Admin: 06/12/18 08:39 Dose: 650 mg Docusate Sodium (Colace -) 100 mg PO TID [facility] Last Admin: 06/12/18 06:45 Dose: Not Given Insulin Aspart (Novolog Vial Sliding Scale -) 1 vial SQ [facility]; Protocol Last Admin: 06/12/18 12:18 Dose: 6 units Insulin Detemir (Levemir Vial) 30 units SQ [facility] Last Admin: 06/11/18 21:17 Dose: 30 units Losartan Potassium (Cozaar -) 25 mg PO DAILY [facility] Last Admin: 06/12/18 10:19 Dose: 25 mg Ondansetron HCl (Zofran Injection) 4 mg IVPUSH Q6H PRN PRN Reason: NAUSEA AND/OR VOMITING Oxycodone HCl (Roxicodone -) 5 mg PO Q4H PRN PRN Reason: PAIN LEVEL 7-10 Last Admin: 06/11/18 21:14 Dose: 5 mg Senna (Senna -) 2 tab PO HS [facility] Last Admin: 06/11/18 21:16 Dose: 2 tab Laboratory Results - last 24 hr 06/11/18 06/11/18 06/11/18 09:00 17:13 21:11 WBC RBC Hgb Hct MCV MCH MCHC RDW Plt Count MPV POC Glucometer 201 300 365 06/12/18 06/12/18 06/12/18 05:53 06:20 11:37 WBC 7.7 RBC 3.62 L Hgb 11.2 L Hct 32.1 L MCV 88.8 MCH 31.0 MCHC 34.9 RDW 13.0 Plt Count 250 D MPV 9.4 POC Glucometer 203 298 ASSESSMENT AND PLAN: 63 yof with PMhx of IDDM, HTN, Spinal stenosis s/p elective L3-S1 laminectomies , spinal fusion and surgery. -Spinal stenosis s/p surgery 06/05/2018 -Severe hypophosphatemia, resolved -Constipation -IDDM -HTN -?Anxiety Plan: Doing well, Spine surgery input noted. DSD to wound daily, outpatient follow up in 7-10 days for wound assessment and staple remove. Continue bowel regimen, s/p bowel movement. Patient confirms on tresiba 36 units and novolog premeal TID. COntinue losartan. Incentive spirometry. d/c to SNF today. Plan discussed with patient in detail, all questions answered.
[2018-06-12] MEDS: oxyCODONE HCL 5 MG TABLET PO PRN (13:13)
== END 2018-06-12 13:17 | DRG 460 ==
LOC: JSAMEDAYSX 10:21 → JICU 23:03 → J8W 06-08 17:02
PROVIDERS: ADMIT Orthopaedic Surgery Orthopaedic Surgery of the Spine; ATTEND Hospitalist
PROC: 0SG30AJ Fusion of Lumbosacral Joint with Interbody Fusion Device, Posterior Approach, Anterior Column, Open Approach (ICD-10-PCS; 2018-06-05)
PROC: 0SB40ZZ Excision of Lumbosacral Disc, Open Approach (ICD-10-PCS; principal; 2018-06-05 11:30)
DX: M48.07 Spinal stenosis, lumbosacral region (principal); E11.9 Type 2 diabetes mellitus without complications; I10 Essential (primary) hypertension; E83.39 Other disorders of phosphorus metabolism; K59.00 Constipation, unspecified; M54.5 Low back pain; M40.209 Unspecified kyphosis, site unspecified; Z79.4 Long term (current) use of insulin
CPT/HCPCS: 36415; 71045-TC-FY; 76000-TC-FY; 80048; 80053; 82962; 83735; 84100; 85025; 85027; 86850; 86900; 86901; 88304-TC; 90670; 97116-GP; 97161-GP; J0131; J1644

== ENCOUNTER 2018-12-22 08:24 | Day surgery (SDC) | payer OTHER, BC ==
[2018-12-15 16:43] VITALS: BMI 28.2
[2018-12-22] MEDS ORDERED: oxyCODONE HCL 5 MG TABLET PO PRN (11:22)
[2018-12-22] MEDS ORDERED: ACETAMINOPHEN 325 MG TABLET (FP) PO PRN (11:22)
[2018-12-22] MEDS ORDERED: ONDANSETRON 4 MG/2 ML VIAL IVPUSH PRN (11:22)
[2018-12-22] MEDS ORDERED: PROPOFOL 20 ML ONE ×2 (11:44)
[2018-12-22] MEDS ORDERED: ceFAZolin SODIUM 1 GM VIAL ONE (12:06)
[2018-12-22] MEDS ORDERED: ONDANSETRON 4 MG/2 ML VIAL ONE ×2 (12:19→13:05)
[2018-12-22] MEDS ORDERED: DEXAMETHASONE SOD PHOSPHATE 4 MG/1 ML VIAL ONE (12:19)
--- NOTE | 2018-12-22 13:00 | OP ---
Operative Note - Note: Operative Date: 12/22/18 Pre-Operative Diagnosis: Bilateral 3rd & 4th trigger fingers Operation: 1. Open left 3rd trigger finger release. 2. Open left 4th trigger finger release. 3. Open right 3rd trigger finger release. 4. Open right 4th trigger finger release Post-Operative Diagnosis: Same as Pre-op Surgeon: Zachary Willams Checkering Machine Operator: Tin Willams Anesthesiologist/GUEST SERVICE AGENT: Martin Villarreal Anesthesia: General Estimated Blood Loss (mls): 0 Fluid Volume Replaced (mls): 500 (Crystalloid) Operative Report Dictated: Yes
--- NOTE | 2018-12-22 13:03 | PN ---
Progress Note (short form) - Note Progress Note: 63M s/p bilateral 3rd & 4th open trigger finger releases POD #0. -Pain control: Percocet, meloxicam ordered to pharmacy for analgesia; OK to use OTC NSAID's instead. -Incentive spirometry. -STRICT NWB B/L UE. -Keep dressings clean & dry. -Elevate wrist/hand above level of heart. -Discharge home: f/u [facility] Tue12/29/2018; call for appointment: . Zachary Willams MD (Orthopaedic Surgery).
[2018-12-22] MEDS ORDERED: KETOROLAC TROMETHAMINE 30 MG/1 ML VIAL ONE (13:44)
[2018-12-22] MEDS ORDERED: KETOROLAC TROMETHAMINE 30 MG/1 ML VIAL IVPUSH ONE (13:50)
[2018-12-22] MEDS ORDERED: oxyCODONE HCL 5 MG TABLET ONE (13:59)
[2018-12-22] MEDS ORDERED: LOSARTAN POTASSIUM 25 MG TABLET PO SCH (14:00)
[2018-12-22] MEDS ORDERED: LOSARTAN POTASSIUM 25 MG TABLET PO ONE (14:06)
[2018-12-22 15:11] VITALS: TEMP 97.8
[2018-12-22 15:13] VITALS: BP 144/83; PULSE 82
--- NOTE | 2018-12-22 16:04 | OP ---
DATE OF OPERATION: DATE OF DICTATION: 12/22/2018 SURGEON: Zachary Willams MD DIRECTOR CASE MANAGEMENT: Tin Willams MD PREOPERATIVE DIAGNOSIS: 1. Left 3rd trigger finger. 2. Left 4th trigger finger. 3. Right 3rd trigger finger. 4. Right 4th trigger finger. PROCEDURE PERFORMED: 1. Open left 3rd trigger finger release. 2. Open left 4th trigger finger release. 3. Open right 3rd trigger finger release. 4. Open right 4th trigger finger release. ANESTHESIA: General. ANTIBIOTICS GIVEN: 1 g Kefzol. DESCRIPTION OF PROCEDURE: The patient was correctly identified and brought to the operating room. Both upper extremities were prepped, free draped in the routine manner with Betadine scrub solution, wiped off with alcohol, DuraPrep applied. We started on the right hand side in the palmar crease then transverse crease proximal. There was a proximal main crease. This corresponded to the flexion of the metacarpophalangeal joint. The dissection was taken through the skin, subcutaneous flap, down to the palmar fascia and aponeurosis. This was longitudinally incised and split right directly to the tendon. The A1 miko clearly was visualized. A scissor was placed under the miko and incised by 1 cm freeing the tendon completely. This was both applied to the 3rd and 4th finger. A tourniquet was released. Hemostasis was achieved, and the wound was closed with 3-0 nylon. We then went ahead and performed the exact same procedure on the contralateral side, that is the left hand side in a bloodless field after sterilization of the skin with Betadine and alcohol. Utilizing the same crease as on the contralateral side and the incision made in the crease, the exact same procedure of the dissection down to subcutaneous fat splitting the palmar fascia longitudinally enabled easy and clear visualization of the A1 miko, and this was as exactly on the contralateral side transected. No complications. Operation went well. Zachary Willams MD [id number] MTDD
[2018-12-22] MEDS ORDERED: INSULIN SLIDING SCALE (NOVOLOG) 1 VIAL SQ SCH (16:30)
[2018-12-22] MEDS ORDERED: INSULIN DEGLUDEC SQ SCH (22:00)
[2018-12-22] MEDS ORDERED: INSULIN LISPRO 16 UNIT SQ SCH (22:00)
== END 2018-12-22 15:15 | disposition home or self-care (01) ==
LOC: FASU 08:24
PROVIDERS: ATTEND Orthopaedic Surgery Orthopaedic Surgery of the Spine
PROC: 0LN80ZZ Release Left Hand Tendon, Open Approach (ICD-10-PCS; 2018-12-22)
PROC: 0LN70ZZ Release Right Hand Tendon, Open Approach (ICD-10-PCS; 2018-12-22)
PROC: 0LN70ZZ Release Right Hand Tendon, Open Approach (ICD-10-PCS; 2018-12-22)
PROC: 0LN80ZZ Release Left Hand Tendon, Open Approach (ICD-10-PCS; principal; 2018-12-22 12:15)
DX: M65.332 Trigger finger, left middle finger (principal); M65.331 Trigger finger, right middle finger; M65.342 Trigger finger, left ring finger; M65.341 Trigger finger, right ring finger
CPT/HCPCS: 82962; 94760